=== PATIENT | female | born 1945 | race Caucasian/White ===

== ENCOUNTER 2016-12-13 13:06 | Observation (INO) ==
[2016-12-13] MEDS ORDERED: 0.9 % Sodium Chloride 1,000 ML ONE ×2 (13:53→14:55)
[2016-12-13] MEDS ORDERED: *HR* Heparin 10,000 UNIT/10 ML VIAL ONE (13:53)
[2016-12-13] MEDS ORDERED: Heparin 1,000 UNITS/500 mL NS 500 ML ONE (13:53)
--- NOTE | 2016-12-13 14:15 | Emergency Department Note ---
Disposition Clinical Impression: Peripheral vascular disease Disposition: Transfer Other Reasons to Return/Additional Instructions: To the [facility] as an outpatient Referrals: Corky Diamond MD [Primary Care Provider] - Forms: ED Satisfaction Letter Time of Disposition: 14:15 Extremity Problem HPI - General Chief complaint: ED Extremity Problem,Nontraumatic Stated complaint: toe infection Source: patient, family Limitations: no limitations Nursing Notes Reviewed: Yes Vital Signs Reviewed: Yes - History of Present Illness HPI Narrative: 71-year-old with right foot pain seen by vascular and sent here to be prepped for a trip to the [facility] and stenting. She states she has increasing right foot pain without a necrotic area on her big toe and second toe. Pt Subjective Complaint: extremity pain Onset (ago): day(s) Consistency: constant Pain Scale: 8 Radiation: none Improves with: nothing Worsens with: nothing Associated symptoms: Denies: chest pain, shortness of breath - Related Data Previous Rx's Medication Instructions Recorded Ciprofloxacin [Cipro] 500 mg PO BID #14 tablet 11/27/16 HYDROcodone/Acet 5/325 mg [[place] 1 tab PO Q6H PRN #10 tab 11/27/16 5-325 mg] Indomethacin 50 mg PO TID PRN #20 capsule 11/27/16 Sulfamethoxazole/Trimeth DS 1 each PO BID #14 tablet 11/27/16 [Bactrim DS] Allergies Allergy/AdvReac Type Severity Reaction Status Date / Time Penicillins Allergy Itching Verified 11/27/16 18:26 Constitutional: Denies: fever, chills, weakness, weight change Eyes: Denies: eye pain, eye discharge, vision change ENT ED: Denies: ear pain, throat pain, dental pain, hearing loss, epistaxis, congestion, dysphagia Cardiovascular: Denies: chest pain, palpitations, dyspnea on exertion, edema, syncope Respiratory: Denies: cough, dyspnea, wheezes, hemoptysis, stridor Gastrointestinal: Denies: abdominal pain, nausea, vomiting, diarrhea, constipation, hematemesis, melena, hematochezia Genitourinary: Denies: dysuria, frequency, hematuria, discharge Musculoskeletal: Denies: back pain, neck pain, arthralgia, myalgia Integumentary: Denies: rash, abrasion, lesions Neurological: Denies: headache, weakness, numbness, paresthesias, confusion, abnormal gait, vertigo Psychiatric: Denies: anxiety, depression, suicidal thoughts, homicidal thoughts , auditory hallucinations, visual hallucinations Endocrine: Denies: fatigue Hematological/Lymphatic: Denies: easy bleeding, easy bruising Allergic/Immunologic: Denies: facial swelling, urticaria Past Medical History - Past Medical History Medical history: Reports: hypertension Psychiatric history: Reports: no psych history - Social History Smoking Status: Current every day smoker Smokeless Tobacco Status: No Alcohol use: Reports: none Drug use: Reports: none Physical Exam - General Limitations: no limitations General appearance: alert, in no apparent distress - Head Head exam: atraumatic, normocephalic, normal inspection - Eye Eye exam: Present: normal appearance, PERRL, EOMI - Expanded Eye Exam Pupils: Left: reactive - ENT ENT exam: normal exam, normal oropharynx, mucous membranes moist - Expanded ENT Exam External ear exam: Present: normal external inspection Mouth exam: Present: normal external inspection Teeth exam: Present: normal inspection Throat exam: Present: normal inspection - Neck Neck exam: Present: normal inspection, full ROM, trachea midline - Chest Chest inspection: Present: normal inspection, symmetric chest wall rise - Respiratory Respiratory exam: Present: normal lung sounds bilaterally - Cardiovascular Cardiovascular exam: Present: regular rate, normal rhythm, normal heart sounds - Abdominal Exam Abdominal exam: Present: soft, Non-Tender. Absent: tenderness, distention, guarding, rebound, rigidity - Extremities Exam Extremities exam: Present: pedal edema - Expanded Upper Extremity Exam Shoulder exam: Present: normal inspection, full ROM Arm exam: Present: normal inspection, full ROM Elbow exam: Present: normal inspection, full ROM Forearm/Wrist exam: Present: normal inspection, full ROM Hand exam: Present: normal inspection, full ROM Vascular exam: Normal: capillary refill, radial pulse - Expanded Lower Extremity Exam Hip/Pelvis exam: Present: normal inspection, full ROM Upper leg exam: Present: normal inspection, full ROM Knee exam: Present: normal inspection, full ROM Lower leg exam: Present: normal inspection, full ROM Ankle exam: Present: normal inspection, full ROM Foot/toe exam: Present: other (Chronic area of the great toe and second toe.) Neurovascular/Tendon exam: Absent: motor deficit, sensory deficit, tendon deficit - Back Exam Back exam: Present: normal inspection, full ROM. Absent: tenderness - Neurological Exam Neurological exam: Present: alert, oriented X3 - Expanded Neurological Exam Patient oriented to: Present: person, place, time Coma Scale Eye Opening: Spontaneous Coma Scale Motor Response: Obeys Commands Coma Scale Verbal Response: Oriented Coma Scale Total: 15 - Psychiatric Psychiatric exam: Present: normal affect, normal mood - Skin Skin exam: Present: warm, dry, intact, normal color Course - Reevaluation(s) Reevaluation #1: Genitourinary for clearance to go to the catheter lab. Dr. Walker gave orders for labs and will be down to take the patient to the [facility] when labs return. Time: 14:14 Vital Signs Temperature 97.7 F 12/13/16 13:14 Pulse Rate 109 12/13/16 13:14 Respiratory Rate 18 12/13/16 13:14 Blood Pressure 169/86 12/13/16 13:14 O2 Sat by Pulse Oximetry 97 12/13/16 13:14 Temperature 97.7 F 12/13/16 13:14 Pulse Rate 109 12/13/16 13:14 Respiratory Rate 18 12/13/16 13:14 Blood Pressure 169/86 12/13/16 13:14 O2 Sat by Pulse Oximetry 97 12/13/16 13:14 Oxygen Delivery Oxygen Delivery Room Air Extremity Problem, Nontraumati - EKG Data EKG attestation: Yes I reviewed and interpreted this EKG. EKG shows normal: sinus rhythm Rate: normal Rhythm: NSR Interpretation: no acute changes
[2016-12-13 14:30] LABS: Basophils # 0.1 K/mcL (0.0-0.2); Basophils % 0.7 %; Eosinophils % 0.2 %; Hematocrit 34.3 % (35.3-44.9); Hemoglobin 10.7 g/dL (11.5-15.4); Immature Granulocytes % 4.3 % (0-4); Lymphocytes # 0.7 K/mcL (0.6-4.6); Lymphocytes % 5.5 %; Mean Corpuscular HGB Conc 31.2 g/dL (31.6-35.5); Mean Corpuscular Hemoglobin 28.2 pg (28.0-33.3); Mean Corpuscular Volume 90.5 fL (83.0-100.0); Mean Platelet Volume 8.7 fL (9.4-12.4); Monocytes # 0.6 K/mcL (0.0-1.3); Monocytes % 5.1 %; Neutrophils # 10.2 K/mcL (1.6-8.9); Platelet Count 426 K/mcL (140-400); Red Blood Count 3.79 M/mcL (3.82-4.97); Red Cell Distribution Width 15.9 % (11.5-14.5); Segmented Neutrophils % 84.2 %
[2016-12-13 14:41] LABS: INR 1.1
[2016-12-13 14:42] LABS: BUN/Creatinine Ratio 17 (6-26); Blood Urea Nitrogen 17 mg/dL (7-20); Calcium 9.2 mg/dL (8.6-10.8); Carbon Dioxide 22 mEq/L (19-29); Chloride 103 mEq/L (98-109); Glucose 99 mg/dL (70-99); Osmolality,Calculated 280 (280-300); Sodium 134 mEq/L (136-145); eGFR For African Americans > 60 (> 60); eGFR For Non-African Americans 54 (> 60)
[2016-12-13 14:44] LABS: Activated Partial Thrombo Time 29.8 Seconds (26.0-36.0)
[2016-12-13] MEDS ORDERED: *HR* FentaNYL (PF) 100 MCG/2 ML VIAL ONE ×2 (14:55→16:19)
[2016-12-13] MEDS ORDERED: *HR* Midazolam HCl 2 MG/2 ML VIAL ONE (14:55)
--- NOTE | 2016-12-13 14:59 | History & Physical Report ---
Date of Encounter: 12/13/16 Time of Encounter: 14:59 24 Hour HP Update - Instructions Instructions: If the History and Physical is less than 30 days old and was completed prior to A.M. admission and or procedure and has NOT been updated on calendar day of procedure please complete this update prior to performing procedure. - Update Patient reports changes in Medical Condition: No Changes in assessment/condition: No Changes in Medication: No Preop tests/diagnostics Reviewed: Yes Surgery Remains Indicated: Yes Consent for Planned Operative Procedure(s) Verified: Yes - Pre-Operative Checklist Preoperative Checklist Indicated: No Prophylactic Antibiotic Ordered: No Home Medications Include Beta Elif: No Beta Elif Taken Today (Day of Surgery): No Beta Elif Taken Yesterday (Day Prior to Surgery): No Is VTE Prophylaxis Indicated?: NO
--- NOTE | 2016-12-13 15:01 | Pre-Sedation Evaluation ---
Pre-sedation evaluation - Pre-sedation checklist Date of procedure: 12/13/16 Procedure: lower extremity angiogram Recent Vitals: Last Vital Signs Temp 97.7 F 12/13/16 13:14 Pulse 109 12/13/16 14:42 Resp 18 12/13/16 14:45 BP 169/86 12/13/16 14:45 Pulse Ox 97 12/13/16 14:42 H&P (including ROS) documented in medical record: Yes Previous reaction to sedatives/anesthetics: No Dietary Status: No solid food in preceding 4 hrs and no liquid in preceding 2 hrs Possible difficult airway: No ASA Classification *see protocol: CLASS III-Severe systemic disease Plan of Care: Pt appropriate candidate for procedure/moderate/conscious sedation , Risks/benefits of procedure/sedation discussed w/ patient/family
--- NOTE | 2016-12-13 17:15 | Procedure Note ---
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
[2016-12-13] MEDS ORDERED: Acetaminophen 325 MG TABLET PO PRN (17:20)
[2016-12-13] MEDS ORDERED: Ondansetron 4 MG/2 ML VIAL IVP PRN (17:20)
--- NOTE | 2016-12-13 17:20 | Discharge Summary ---
Outpatient Proc Discharge Plan - Plan Additional Instructions: femoral sheath protocol resume usual home medications begin Plavix 75 mg daily follow up with Dr Diamond in 2 weeks--call [phone] for appointment Prescriptions: Clopidogrel Bisulfate [Plavix] 75 mg PO DAILY #30 tablet Home Medications: Ciprofloxacin [Cipro] 500 mg PO BID #14 tablet 11/27/16 [Rx] HYDROcodone/Acet 5/325 mg [[place] 5-325 mg] 1 tab PO Q6H PRN #10 tab 11/27/16 [Rx ] Indomethacin 50 mg PO TID PRN #20 capsule 11/27/16 [Rx] Sulfamethoxazole/Trimeth DS [Bactrim Ds] 1 each PO BID #14 tablet 11/27/16 [Rx] Clopidogrel Bisulfate [Plavix] 75 mg PO DAILY #30 tablet 12/13/16 [Rx]
[2016-12-13] MEDS ORDERED: *HR* Metoprolol 5 MG/5 ML VIAL IVP ONE (18:07)
[2016-12-13] MEDS: *HR* Morphine 2 MG/ML SYRINGE IVP PRN (19:54)
[2016-12-13] MEDS ORDERED: *HR* Atropine Sulfate 1 MG/10 ML SYRINGE ONE (21:04)
[2016-12-14] MEDS: *HR* HYDROcodone/Acet 5/325 mg TABLET PO PRN ×3 (01:06→08:40)
[2016-12-14] MEDS ORDERED: *HR* Metoprolol 5 MG/5 ML VIAL IVP ONE (02:19)
[2016-12-14] MEDS: *HR* Morphine 2 MG/ML SYRINGE IVP PRN (02:31)
[2016-12-14 07:45] VITALS: BP 149/63
--- NOTE | 2016-12-14 08:14 | Event Note ---
Date of Encounter: 12/14/16 Time of Encounter: 07:50 The patient underwent aortic and iliac stent placement yesterday. She was to be discharged last evening. She was having uncontrollable pain in her right foot at 2 AM. Pulses were intact. This is likely secondary to chronic ischemic injury. At the same time she was having pain in her foot she also had tachyarrhythmia with one run of atrial flutter and one short run of paroxysmal supraventricular tachyarrhythmia. This was treated with an additional dose of intravenous metoprolol. She had no further supraventricular tachycardia and this morning she is in regular rate and rhythm. She continues to have right forefoot pain. Peripheral pulses are intact. She will require additional pain medicine for discharge.
--- NOTE | 2016-12-14 16:30 | Vascular/Endovasc Consult Note ---
Date of Encounter: 12/13/16 Time of Encounter: 15:30 Assessment and Plan (1) Hyperlipidemia Status: Chronic Patient is under treatment with Lipitor 10 mg daily. The outpatient follow-up for this and values of her lipid profile as well as her liver functions are unknown at this time. Qualifiers: Hyperlipidemia type: unspecified Qualified Code(s): E78.5 - Hyperlipidemia , unspecified (2) CAD (coronary artery disease) Status: Ruled-out History of previous myocardial infarction. History of previous open heart bypass grafting in 1998. Details of these events are unknown at the time of this dictation. Qualifiers: Coronary Disease-Associated Artery/Lesion type: [place] artery [place] vs. transplanted heart: [place] heart Associated angina: without angina Qualified Code(s): I25.10 - Atherosclerotic heart disease of [place] coronary artery without angina pectoris (3) Peripheral vascular disease Status: Chronic Severe lower extremity occlusive disease. The patient presents with inflow obstruction or severe stenosis. 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 As I cannot palpate her femoral pulses I believe that she has either a stenosis or occlusion of the right common iliac artery system which is the inflow for both lower extremities. Therefore the patient needs urgent angiography and intervention in an attempt to relieve her lower extremity symptoms and limb threatening ischemia. - History of Present Illness Consult date: 12/13/16 Requesting physician: Bret Hubbard Consult reason: Right foot ischemia Chief complaint: Right foot pain History of present illness: Ms. Fajardo is a 71 year old female White female who had been evaluated recently in the podiatry clinic for right foot and toe problems. The patient was felt to have ischemic changes and was referred for outpatient noninvasive testing. This was performed earlier today at [facility]. At the time of her testing her ankle-brachial index was found to be only 0.25 on the right and 0.38 on the left. The patient also has a many week to months history of lower extremity pain. She had undergone previous vascular interventions. In April 2013 she had undergone an emergency angiogram where a right common iliac artery stent was placed. She was then taken for urgent surgery and underwent a right to left femoral-femoral bypass graft and a left femoral to below the knee popliteal artery vein bypass graft. Unfortunately her last follow-up in the vascular surgery clinic was in May 2014. At that time a noninvasive study from April 2014 was recorded with an ankle -brachial index of 0.7 on the right and 0.8 on the left. An increased velocity in the graft was identified and the patient was recommended to follow up in 6 months with further testing which was never performed. After conversation with Dr. hubbard and the staff technologist earlier today I had recommended that the patient be seen for an urgent angiogram again in an attempt to try to alleviate her limb threatening ischemia. She was then therefore sent from [facility] to the emergency room here at [facility] and now comes to the cardiac catheter lab for angiography and further evaluation and potential endovascular intervention area Past Med Surg Social Fam HX - Past Medical History Medical history: coronary artery disease, hyperlipidemia, hypertension, myocardial infarction, peripheral artery disease Psychiatric history: no psych history - Past Surgical History Surgical History: angioplasty/stent (April 2013 with right common iliac artery stent angioplasty.), coronary bypass (CABG), vascular surgery (April 2013 with right to left femoral-femoral bypass graft and left femoral to below the knee popliteal artery bypass graft with vein) - Social History Smoking Status: Current every day smoker Smokeless Tobacco Status: No Alcohol use: none Drug use: none Occupational status: retired Current living situation: Home - Independent Activity Level: Mostly sedentary Medications and Allergies HYDROcodone/Acet 5/325 mg [[place] 5-325 mg] 1 tab PO Q6H PRN #10 tab 11/27/16 [Rx ] Indomethacin 50 mg PO TID PRN #20 capsule 11/27/16 [Rx] Aspirin [Lo-Dose Aspirin EC] 81 mg PO DAILY 12/14/16 [History] Atorvastatin [Lipitor] 10 mg PO DAILY 12/14/16 [History] Clopidogrel [Plavix] 75 mg PO DAILY 12/14/16 [History] Gabapentin [Neurontin] 300 mg PO TID 12/14/16 [History] Tramadol HCl [Ultram] 50 mg PO QID PRN 12/14/16 [History] Zolpidem [Ambien] 10 mg PO HS PRN 12/14/16 [History] Allergies Penicillins Allergy (Verified 12/14/16 09:52) Rash All Systems Review: A 10-system review of systems was performed and is negative for pertinent findings except as documented above in the HPI. Exam General: Present: Conversant, Other (Patient is in distress with manipulation of right foot or toes.) HEENT: Present: Atraumatic, Normocephaly, Trachea midline Neck: Absent: JVD Cardiac: Present: Other (Sinus tachycardia) Neuro: Present: Alert and responsive, No focal deficits noted, Cranial nerves grossly intact, Motor nerves grossly intact, Sensory nerves grossly intact, Other (Hypersensitivity to the right foot and toes) Abdomen: Present: Soft, Non-tender Vascular: Present: Pulse, absent (The patient does not have palpable femoral, popliteal, or pedal pulses.), Color/Temperature (The skin color of her feet and lower extremities is pale. She has cyanotic changes to her first and second toe on the right foot.), Surgical incisions (The patient has bilateral femoral incisions and left lower extremity incisions from her previous bypass grafting performed in 2013.) Skin: Present: No rashes noted on visualized skin Consult Discharge Plan - Plan Instructions: Clopidogrel (By mouth), Peripheral Vascular Disorders (DC) Additional Instructions: femoral sheath protocol resume usual home medications begin Plavix 75 mg daily follow up with Dr Diamond in 2 weeks--call [phone] for appointment RISK FACTORS: STOP SMOKING: If you smoke, STOP. Smoking or tobacco use significantly increases your risk of heart disease because nicotine causes the arteries to narrow or constrict. It also causes fats to stick to the artery. Your chances of having a heart attack are greatly increased if you continue to smoke. For more information, call the education line for smoking cessation 2-244-AXLLMBI EAT A LOW FAT/CHOLESTEROL/SODIUM DIET: This diet may help reduce your chances of having a heart attack. LIFTING: Avoid lifting anything more than 10 pounds for 5-7 days Prior to straining, laughing, sneezing and/or coughing, apply manual pressure directly over insertion site. ACTIVITY: You may walk or climb stairs as tolerated You can resume sexual activity as tolerated In general, you are encouraged to engage in a minimum of 30 minutes or more of moderate intensity physical activity, such as brisk walking, daily or at least 3 -4 times weekly BATHING Do not submerge the site into water (bath tub, hot tub, swimming pool) for 1 week. This can be a source for infection into the blood stream. You may shower after 24 hours SITE CARE: After 24 hours, you may remove the dressing and leave the site open to air. Keep the site clean and dry. Clean gently and pat dry. You can expect bruising and tenderness that gradually resolve within a week or two. Return to work as instructed per your physician Resume driving as instructed per physician Keep all scheduled follow up appointments Resume medications as instructed IMPORTANT: If prescribed a Platelet Aggregation Inhibitor such as, Plavix, Brilinta or Effient: Duration of therapy is minimum one year These medications are often used in combination with Aspirin in prevention of future heart attacks Never discontinue unless consult with your Store [employer] [facility]er STROKE (CVA) Risk factors for a stroke are: Age, cigarette smoking, diabetes, excessive alcohol consumption, family history, high blood pressure, overweight, physical inactivity, prior stroke, heart attack, diagnosis of carotid artery stenosis or other artery disease. Warning signs: Sudden numbness or weakness of the face, arm or leg; especially on one side of the body, sudden confusion, trouble speaking or understanding, sudden trouble seeing in one or both eyes, sudden trouble walking, dizziness, loss of balance or coordination, sudden severe headache with no cause. Call 911 or go to the Emergency Room. CONGESTIVE HEART FAILURE: If you have been diagnosed with Congestive Heart Failure (CHF) and your symptoms return, make an appointment with your physician Weigh yourself daily. Notify your physician if you have a weight gain of two or more pounds in one day or five or more pounds in one week. If you experience any difficulty breathing, please call 911 BLEEDING: Although the risk of bleeding is minimal, it can happen. If you have any bleeding from the site, apply firm pressure above the puncture site for 10-15 minutes. If the bleeding does not stop, continue manual pressure and call 911 Contact your physician if: You develop a fever greater than 101 degrees Fahrenheit Your site becomes reddened or has any drainage You have an increase in pain or burning at the site or if a large knot forms at the site. If you experience chest pain, shortness of breath, dizziness, or extreme tiredness, stop the activity and rest. Please notify your physicians office if you experience any of these symptoms and they are not relieved by rest please call 911! Referrals: Cokry Diamond MD [Primary Care Provider] -
--- NOTE | 2016-12-15 20:13 | Electrocardiograph Report ---
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
--- NOTE | 2016-12-16 15:27 | Invasive Diagnostic Lab Proc ---
Name: Perri Fajardo Date of Study: 12/13/2016 Date: 1945 Ht: 157.0 in Medical Record#: [id number] Age: 71 Wt: 59 lb Gender: Female BSA: 1.59 Order #: [id number] BMI: 23.94 Physicians Performing MD: Corky Diamond MD, FACS Referring MD: Cinthia Roldan, GLASSWARE SELECTOR Referring MD: Staff Name Position Time In [facility] Nohelia RT (R) Scrub Jennifer Dao RN Senior Sas Developer Sites, Nohelia RT (R) Monitor CelsaAnju RT (R) Monitor Indications Threatened Limb Loss Procedures Performed AORTOGRAPHY, ABDOMINAL S\\T\\I AORTOGRAPHY EXT Bilat S\\T\\I ILIAC REVASC W/STENT Pre-Procedure Checklist Informed consent is complete signed and on chart. H\\T\\P is on chart. ID band is on and ID verified with patient. Patient NPO for procedure The procedure was described for the patient and questions were answered. Blood Pressure: 180/79 ECG is on chart. Rhythm: NSR Plan of Care Patient will tolerate the procedure without complications. Adequate level of comfort will be maintained. Hemodynamics will remain stable Patient will recover from procedure without complications. Respiratory function will be maintained. Cardiac rhythm will remain stable. Patient temperature will be maintained. Patient and/or family have verbalized understanding of the procedure. Patient Education Chief Complaint/Reason for Test: Peripheral angiogram Developmental Category: Geriatric (65+ years) Learning Barriers: None Education Needs: Procedure Education Method: Verbal Information Taught: Peripheral angiogram Educational Evaluation: Able to repeat information Intravenous Access Time IV Size Location DC'd Fluid/Drip Rate Units RN 14:57 18g 1 11/13" Patent On Arrival Rt Antecubital 0.9NaCl 25 ml/hr Jennifer Dao RN Allergies PCN (penicillin) Penicillins Vital Signs Time BP Systolic BP Diastolic HR O2 Sats ASA 03:01 PM 03:02 PM 03:02 PM 03:00 PM 180 79 110 100 03:05 PM 170 78 117 95 03:10 PM 174 73 103 97 03:15 PM 173 61 101 97 03:21 PM 168 79 105 99 03:25 PM 167 71 101 100 03:30 PM 171 66 97 100 03:35 PM 162 73 98 100 03:40 PM 174 61 96 100 03:45 PM 159 68 98 100 03:50 PM 165 65 96 98 03:55 PM 163 63 96 100 04:00 PM 161 69 94 98 04:55 PM 171 74 106 93 05:00 PM 160 69 102 97 05:05 PM 156 70 103 93 05:10 PM 169 71 107 89 04:05 PM 165 72 98 100 04:10 PM 164 67 99 99 04:15 PM 157 76 105 90 04:20 PM 166 67 103 98 04:26 PM 166 61 100 95 04:30 PM 153 64 98 92 04:35 PM 155 67 105 100 04:40 PM 169 76 104 94 04:46 PM 174 78 104 100 04:50 PM 188 74 104 99 Procedure Medications Time Medication Dose Units Method Route 03:01 PM Oxygen 2 L/min nasal cannula 03:03 PM Versed 1 mg Intravenous 03:03 PM Fentanyl 25 mcg Intravenous 03:17 PM Lidocaine 2% 10 ml Subcutaneous 03:19 PM Fentanyl 25 mcg Intravenous 03:22 PM Versed 1 mg Intravenous 03:23 PM Lidocaine 2% 10 ml Subcutaneous 03:38 PM Lidocaine 2% 10 ml Subcutaneous 03:38 PM Fentanyl 25 mcg Intravenous 03:51 PM Lidocaine 2% 10 ml Subcutaneous 04:09 PM Heparin 500 units Intravenous 04:14 PM Fentanyl 25 mcg Intravenous 04:19 PM Fentanyl 50 mcg Intravenous 04:33 PM Benadryl 25 mg Intravenous 05:12 PM Fentanyl 50 mcg Intravenous ASA Classification: CLASS II- Mild systemic disease (i.e. well-controlled diabetes, hypertension, asthma, cigarette smoking) Emergent Procedure: ASA score is assumed Simi Score Preprocedure Postprocedure Activity 2- Moves 4 extremities sustained head lift Activity 2- Moves 4 extremities sustained head lift Circulation 1- SBP+/= 20 - 50 points of pre-anesthetic level Circulation 1- SBP+/= 20 - 50 points of pre-anesthetic level Consciousness 2- Awake and alert oriented x 3 Consciousness 2- Awake and alert oriented x 3 O2 Saturation 2- Able to maintain O2 satruation of 92% on room air O2 Saturation 2- Able to maintain O2 satruation of 92% on room air Respiratory 2- Able to deep breathe and cough well Respiratory 2- Able to deep breathe and cough well Total Score 9 Total Score 9 Contrast: Isovue 300- 150ml Contrast Amount: 65 ml Fluoro Dose: 379 mGy Activated Clotting Time Time Drawn ACT (sec) 05:12 PM 208 Procedure Log Time Note Entered By 03:01 PM Pt arrived to crime lab technician 1 at 15:01 scoates 03:01 PM Case delayed: No scoates 03:01 PM Physician arrived 15:01 scoates 03:01 PM Meet and greet completed scoates 03:01 PM Sign in performed according to hospital policy. scoates 03:01 PM Procedure start 15:01 scoates 03:01 PM 15:01 Oxygen at 2 L/min per nasal cannula by Jennifer Dao RN scoates 03:01 PM Time: 15:01 Is patient comfortable and pain free?: Yes scoates 03:02 PM Time: 15:02LOC: 5 = Fully awake and oriented or at pre-proc level scoates 03:02 PM Patient charges- Angio tray pack, Pulse Oximetry and ACIST tubing and transducer scoates 03:03 PM 15:03 Versed 1 mg Intravenous Given by Jennifer Dao RN scoates 03:03 PM 15:03 Fentanyl 25 mcg Intravenous Given by Jennifer Dao RN scoates 03:03 PM Nohelia Fajardo RT (R) Position: Scrub Time in: 15:03 scoates 03:03 PM Jennifer Dao RN Position: Senior Sas Developer Time in: 15:03 scoates 03:03 PM Nohelia Whitman RT (R) Position: Monitor Time in: 15:03 scoates 03:03 PM Anju Steen RT (R) Position: Monitor Time in: 15:03 scoates 03:07 PM Time out perfomed scoates 03:03 PM Hair removed from procedure site in procedure lab using clippers. Bilateral groin prepped with Chloraprep by Sabrina López RT (R) then patient draped. Skin intact. scoates 03:09 PM Ultrasound, Sonosite, utilized to obtain vascular access scoates 03:16 PM Smart Needle utilized for vascular access at this time scoates 03:17 PM Time: 15:02LOC: 4 = Oriented but drowsy scoates 03:17 PM Time: 15:01 Is patient comfortable and pain free?: Yes scoates 03:18 PM 15:17 10 ml Lidocaine 2% to right groin Subcutaneous Given By Corky Diamond MD, FACS scoates 03:19 PM 15:19 Fentanyl 25 mcg Intravenous Given by Jennifer Dao RN tsites 03:23 PM 15:22 Versed 1 mg Intravenous Given by Jennifer Dao RN tsites 03:23 PM 15:23 10 ml Lidocaine 2% to right groin Subcutaneous Given By Corky Diamond MD, FACS tsites 03:11 PM Unsuccessful access attempt # 1 into the right Femoral artery. Manual pressure applied to achieve hemostasis.. tsites 03:20 PM Unsuccessful access attempt # 2 into the right Femoral artery. Manual pressure applied to achieve hemostasis.. tsites 03:27 PM Unsuccessful access attempt # 3 into the right Femoral artery. Manual pressure applied to achieve hemostasis.. tsites 03:30 PM Unsuccessful access attempt # 4 into the right Femoral artery. Manual pressure applied to achieve hemostasis.. tsites 03:36 PM Unsuccessful access attempt # 5 into the right Femoral artery. Manual pressure applied to achieve hemostasis.. tsites 03:38 PM 15:38 10 ml Lidocaine 2% to right groin Subcutaneous Given By Corky Diamond MD, FACS tsites 03:38 PM 15:38 Fentanyl 25 mcg Intravenous Given by Jennifer Dao RN tsites 03:43 PM Unsuccessful access attempt # 6 into the right Femoral artery. Manual pressure applied to achieve hemostasis.. tsites 03:51 PM 15:51 10 ml Lidocaine 2% to right groin Subcutaneous Given By Corky Diamond MD, FACS tsites 03:56 PM Access obtained in the right femoral artery by percutaneous puncture. 5 Fr. 10 cm Terumo Wake[place] sheath placed in right femoral artery tsites 03:58 PM 5cc of contrast injected into the right femoral artery tsites 03:59 PM 0.035 180cm J-wire wire utilized to assist with catheter placement tsites 04:01 PM 5Fr [place] catheter inserted over the wire tsites 04:02 PM Wire removed tsites 04:02 PM 5cc of contrast injected tsites 04:05 PM Abdominal aorta angiography performed in AP contrast injected 10/25 mls. tsites 04:08 PM glidewire reinserted tsites 04:08 PM Catheter removed tsites 04:09 PM 16:09 Heparin 500 units Intravenous by Jennifer Dao RN tsites 04:10 PM Intervention started at this time tsites 04:10 PM Inflation device tsites 04:10 PM 5 mm x 40 mm Silicator balloon catheter placed into right common iliac tsites 04:12 PM Balloon inflated @ 16 landen for 120 seconds tsites 04:14 PM 16:14 Fentanyl 25 mcg Intravenous Given by Jennifer Dao RN tsites 04:15 PM Balloon inflated @ 16 landen for 120 seconds tsites 04:17 PM Diagram Region: Abdominal Arteries Anatomical Region: [id number]% occlusion in Distal Aorta Intervention done: 1 (1=yes, 0=no) tsites 04:17 PM Diagram Region: Lower Extremity Arteries Anatomical Region: LE-Njh046% occlusion in Left Common Iliac Intervention done: 0 (1=yes, 0=no) tsites 04:18 PM Diagram Region: Lower Extremity Arteries Anatomical Region: [id number]-Big943% occlusion in Right Common Iliac Intervention done: 1 (1=yes, 0=no) tsites 04:18 PM Balloon inflated @ 16 landen for 60 seconds tsites 04:19 PM 16:19 Fentanyl 50 mcg Intravenous Given by Jennifer Dao RN tsites 04:21 PM balloon removed over the wire tsites 04:22 PM contrast injected, images obtained tsites 04:22 PM CHRISTEL catheter inserted over the wire. tsites 04:24 PM wire exchanged tsites 04:24 PM catheter removed tsites 04:30 PM 5.0 mm x 60 mm Silicator balloon catheter placed into right common iliac tsites 04:31 PM Balloon inflated @ 14 landen for 120 seconds tsites 04:33 PM 16:33 Benadryl 25 mg Intravenous Given by Jennifer Dao RN tsites 04:33 PM Balloon removed intact tsites 04:34 PM contrast injected, images obtained tsites 04:39 PM Sheath exchanged for a 6 Fr 10 cm [place] sheath inserted into right femoral artery tsites 04:40 PM 6 mm x 37 mm Express LD stent placed in right common iliac artery Lot # [id number] tsites 04:43 PM Guide wire removed intact tsites 04:44 PM 0.035 J -Wire 180cm guidewire advanced. tsites 04:45 PM Stent deployed @ 12 landen for 60 seconds tsites 04:47 PM Stent balloon reinflated @ 14 landne for 60 seconds tsites 04:49 PM Stent balloon reinflated @ 14 landen for 60 seconds tsites 04:51 PM contrast injected, images obtained tsites 04:54 PM 7 mm x 27 mm Express LD stent placed in distal aorta artery Lot # [id number] tsites 04:55 PM Stent deployed @ 12 landen for 60 seconds tsites 04:56 PM Stent delivery system removed intact tsites 04:59 PM Pigtail catheter inserted over the wire tsites 05:02 PM Abdominal angiogram with runoff completed: 5 ml/sec for a total of 50 mls tsites 05:01 PM Setting up for stepping tsites 05:12 PM act drawn tsites 05:12 PM 17:12 Fentanyl 50 mcg Intravenous Given by Jennifer Dao RN tsites 05:12 PM ACT drawn tsites 05:12 PM ACT: 208 seconds 17:12 tsites 02:59 PM PVIStat 02:59 PM Vitals capture started with the following parameters, Patient=Adult, Interval=5 min, Initial Nsyfycyx=007 mmHg, Deflation Rate=5 mmHg 03:00 PM VU=944 bpm, RPFJ=267/79 mmhg, DgN7=752.0 % 03:05 PM PB=332 bpm, PEPP=146/78 mmhg, SpO2=95 %, Resp=4 B/min 03:09 PM Pressure channel 1 zero failed. 03:09 PM Pressure channel 1 zero failed. 03:09 PM Pressure channel 1 zeroed. 03:10 PM JY=395 bpm, FXYE=445/73 mmhg, SpO2=97.0 %, Resp=18 B/min 03:15 PM UI=454 bpm, BPNN=882/61 mmhg, SpO2=97 %, Resp=21 B/min 03:21 PM MN=679 bpm, TBSU=154/79 mmhg, SpO2=99 %, Resp=12 B/min 03:25 PM EL=899 bpm, ETIQ=695/71 mmhg, MeM6=575 %, Resp=25 B/min 03:30 PM HR=97 bpm, LVDO=009/66 mmhg, UjB2=367.0 %, Resp=20 B/min 04:30 PM HR=98 bpm, JKTZ=478/64 mmhg, SpO2=92 %, Resp=15 B/min 04:35 PM ZV=841 bpm, RZYB=290/67 mmhg, GtX5=557.0 %, Resp=9 B/min 04:40 PM IK=147 bpm, EYRA=146/76 mmhg, SpO2=94.0 %, Resp=10 B/min 04:46 PM TU=176 bpm, NLLJ=373/78 mmhg, CxJ9=210.0 %, Resp=23 B/min 04:50 PM JH=723 bpm, WDDG=379/74 mmhg, SpO2=99.0 %, Resp=12 B/min 04:55 PM BL=961 bpm, SPEP=260/74 mmhg, SpO2=93.0 %, Resp=13 B/min 05:00 PM RJ=743 bpm, YBWF=432/69 mmhg, SpO2=97.0 %, Resp=17 B/min 05:00 PM Recorded Pressure: Ao, SG=168, Condition=Condition 1 (Aorta) Ao 196/74/127 05:05 PM SV=610 bpm, VUCV=288/70 mmhg, SpO2=93.0 %, Resp=19 B/min 05:10 PM JU=041 bpm, AKTX=049/71 mmhg, SpO2=89 %, Resp=7 B/min 03:35 PM HR=98 bpm, JJUX=995/73 mmhg, OlC6=580 %, Resp=17 B/min 03:40 PM HR=96 bpm, DUQQ=985/61 mmhg, CbW3=201 %, Resp=20 B/min 03:45 PM HR=98 bpm, TFRW=747/68 mmhg, MmJ9=539.0 %, Resp=26 B/min 03:50 PM HR=96 bpm, GAAF=303/65 mmhg, SpO2=98 %, Resp=16 B/min 03:55 PM HR=96 bpm, HWYF=124/63 mmhg, PzO3=130 %, Resp=22 B/min 04:00 PM HR=94 bpm, SRKA=949/69 mmhg, SpO2=98 %, Resp=20 B/min 04:05 PM HR=98 bpm, OHME=522/72 mmhg, BiZ6=950 %, Resp=25 B/min 04:10 PM HR=99 bpm, JUTD=491/67 mmhg, SpO2=99 %, Resp=19 B/min 04:15 PM WK=583 bpm, PMQP=393/76 mmhg, SpO2=90 %, Resp=11 B/min 04:20 PM JH=192 bpm, FMSQ=504/67 mmhg, SpO2=98 %, Resp=6 B/min 04:26 PM OP=228 bpm, YHQZ=005/61 mmhg, SpO2=95 %, Resp=17 B/min 05:14 PM Procedure completed at 17:14 tsites 05:15 PM Sign Out completed: Radiation Dose 379 mGy Fluoro Time: 7.4 minutes. Isovue 300- 150ml contrast 65 ml given by Corky Diamond MD, FACS. Complications: None. Confirmed administered medications:Yes tsites 05:16 PM Isovue 300- 150ml,1 bottle(s) used. tsites 05:16 PM Sheath left in place to be pulled on floor/holding areaV+Pad tsites 05:16 PM Post Blood Pressure: 169/71 tsites 05:16 PM Post EKG: NSR tsites 05:16 PM 17:16 Post Pulses: Bilateral DP \\T\\ PT None. tsites 05:16 PM Information taught: Peripheral angiogram tsites 05:17 PM Education needs: Procedure, Plan of Care, and Responsibilities of Patient in Care tsites 05:17 PM Learning barriers: None tsites 05:17 PM Education methods: Verbal tsites 05:17 PM Education evaluation: Able to repeat information tsites 05:17 PM Patient pain level 0/10 tsites 05:17 PM Site status No bleeding/hematoma - Rt Groin as reported by Nohelia Fajardo RT (R) at 17:17 tsites 05:17 PM Opsite applied tsites 05:17 PM Delay to floor: No tsites 05:17 PM Pt taken to Room# 14 tsites 05:17 PM Family placed in consult room. tsites 05:17 PM Patient out of room 17:17 tsites 05:19 PM Diagram Region: Lower Extremity Arteries Anatomical Region: LE-Sse107% occlusion in Left Superficial Femoral Intervention done: 0 (1=yes, 0=no) tsites 05:23 PM Diagram Region: Lower Extremity Arteries Anatomical Region: [id number]% occlusion in Right Superficial Femoral Intervention done: 0 (1=yes, 0=no) tsites 05:23 PM Diagram Region: Lower Extremity Arteries Anatomical Region: LE-Lsj090% occlusion in Left Ant. Tibial Intervention done: 0 (1=yes, 0=no) tsites 05:23 PM Diagram Region: Lower Extremity Arteries Anatomical Region: [id number]-Dsi312% occlusion in Right Ant. Tibial Intervention done: 0 (1=yes, 0=no) tsites 05:24 PM Report given to varghese HEBERT. Pt taken to , Room # 14 17:24 tsites 05:25 PM Delay to floor: No tsites 05:25 PM Pt taken to Room# 14 tsites Hemodynamic Results Site Systolic Diastolic Mean Location Timing Ao 196 74 127 Peripheral Anatomy Vessel Pathology Lesion Stenosis Aneurysm Diameter Thrombus Type Aorta occlusion 100 Left Common Iliac occlusion 100 Right Common Iliac occlusion 100 Left Superficial Femoral occlusion 100 Right Superficial Femoral Lesion 60 Left Ant. Tibial occlusion 100 Right Ant. Tibial occlusion 100 Peripheral Intervention Anatomical Region:Abd-Art Vessel Segment:Undefined Bookmark: [email or web address] Pathology Type:occlusion Pre-Stenosis:100 Post-Stenosis:15 Peripheral Intervention Anatomical Region:LE-Art Vessel Segment:Undefined Bookmark: [email or web address]_Intv Pathology Type:occlusion Pre-Stenosis:100 Post-Stenosis:0 Post Procedure Information Blood Pressure: 169/71 mmHg Rhythm: NSR Post procedure instructions given Report Given To: Jacqueline Site Checks Time Location Status Staff Sheath In? Note 5:17:00 PM Rt Groin No bleeding/ No Hematoma Nohelia Fajardo RT (R) Pulses Time Site Pre Procedure Post Procedure Note 12/13/2016 3:04:00 PM Bilateral DP \\T\\ PT None 5:16:00 PM Bilateral DP \\T\\ PT None Updated by Bria Cronin RT (R) on 12/16/2016 3:21:47 PM electronically signed on 12/16/2016 3:22:42 PM with status of Final
--- NOTE | 2016-12-20 19:56 | Invasive Diagnostic Lab ---
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 An intervention including stent placement was performed successfully on the distal Abdominal aorta. The bilateral renals have non-significant disease. 100% in-stent restenosis in the Right Common Iliac. An intervention including balloon angioplasty and stent placement was performed successfully on the Right Common Iliac stent and in the more distal Right Common Iliac artery. 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 The [id number] femoral-femoral bypass is patent. The left Superficial Femoral is chronically occluded. The Left femoral-below knee bypass graft is patent. The right Superficial Femoral has significant, flow limiting disease. The Bilateral Tibials demonstrate minimal concentration of contrast and may be sevely diseased or occluded. Recommendations: Optimize medical therapy of patient's diseases. 75 mg Plavix PO daily. Aggressive risk factor modification. History/ Risk Factors: Hypertension Hx of Tobacco Use Peripheral Artery Disease Previous CABG Previous PCI Previous Vascular Surgery Technique: The puncture of the right groin was difficult and required Doppler-tipped smart-needle and ultrasound guidance in order to identify the femoral vessel and advance the wire. After informed consent was obtained the patient was placed on the angiographic table. The access areas were prepped and draped in the usual sterile fashion. A timeout protocol was observed. Access was obtained in the right femoral artery. The catheter was advanced over a wire to the suprarenal aorta and an abdominal aortogram was obtained. The injection catheter was then repositioned at the distal infrarenal aorta. An aortogram with bilateral lower extremity runoff was then performed. A critical lesion was seen on the angiogram and a decision was made to proceed to an intervention. Diagnostic sheath was exchanged for a 6 Fr. 11 cm. A wire was advanced through the sheath and successfully advanced through the lesions. Heparin was administered. A 5 x 40 mm and a 5 x 60 mm balloon were advanced over a wire and placed in the right common iliac SERVICE STATION MANAGER and the distal aortic SERVICE STATION MANAGER lesion. Several inflations were then made. A completion angiogram was performed which demonstrated unsuccessful results. A 6 x 37 mm stent was advanced into the right common iliac SERVICE STATION MANAGER lesion and deployed. A completion angiogram was performed which demonstrated successful results. A 7 x 27 mm stent was advanced into the distal aortic SERVICE STATION MANAGER lesion and deployed. A completion angiogram was performed which demonstrated successful results. The sheath was removed and hemostasis was achieved with the following measures: Manual Pressure and Closure pad. Vessel Findings: * Abdominal Arteries There is an occlusion present in the Distal Aorta. An intervention was performed on the Aorta, with a final stenosis of 15%. There were no complications in the vessel segment during the procedure. * Lower Extremity Arteries There is an occlusion present in the Right Common Iliac. An intervention was performed on the Right Common Iliac, with a final stenosis of 0%. There were no complications in the vessel segment during the procedure. There is a lesion present with 60% stenosis, in the Right Superficial Femoral. The lesion has moderate calcification present. No intervention was performed on this Lesion. There is a occlusion present in the Right Ant. Tibial. No intervention was performed on this occlusion. There is a occlusion present in the Left Common Iliac. No intervention was performed on this occlusion. There is a occlusion present in the Left Superficial Femoral. No intervention was performed on this occlusion. There is a occlusion present in the Left Ant. Tibial. No intervention was performed on this occlusion. Lesions: Distal Aorta Stenosis: 100% Residual Stenosis: 15% Left Common Iliac Stenosis: 100% Right Common Iliac Stenosis: 100% Residual Stenosis: 0% Left Superficial Femoral Stenosis: 100% Right Superficial Femoral Stenosis: 60% Left Ant. Tibial Stenosis: 100% Right Ant. Tibial Stenosis: 100% Total Contrast: Isovue 300- 150ml 65mls Hemodynamic Data Site Location Systolic Timing Ao 196 Updated by Corky Diamond MD, FACS on 12/20/2016 7:49:54 PM Corky Diamond MD electronically signed on 12/20/2016 7:52:53 PM with status of Final
== END 2016-12-14 09:20 | disposition home or self-care (01) ==
LOC: 2NNU 13:06 → EMEROO 13:06 → 2NNU 14:45 → EMEROO 14:47
PROVIDERS: ADMIT Surgery Vascular Surgery; ATTEND Surgery Vascular Surgery

== ENCOUNTER 2021-10-23 07:16 | Inpatient (IN) ==
[2021-10-23] MEDS ORDERED: Acetaminophen 325 MG TABLET PO PRN (10:20)
[2021-10-23] MEDS ORDERED: Ondansetron ODT 4 MG TAB.RAPDIS SL PRN (10:20)
[2021-10-23] MEDS ORDERED: Naloxone 0.4 MG/ML INJ IVP PRN (10:20)
[2021-10-23] MEDS: *HR* HYDROcodone/Acet 5/325 mg TABLET PO PRN ×2 (11:33→18:20)
[2021-10-23] MEDS ORDERED: *HR* Heparin 5,000 UNIT/ML VIAL IVP PRN ×2 (11:43)
[2021-10-23] MEDS ORDERED: Heparin 25,000UNIT/250ML 1/2NS 25,000 UNIT/250 ML IV.SOLN IVC SCH (11:45)
[2021-10-23] MEDS ORDERED: Heparin 25,000 UNIT/250 ML 25,000 UNIT/250 ML IV.SOLN IVC SCH (12:30)
[2021-10-23 13:04] LABS: Hematocrit 38.3 % (35.3-44.9); Hemoglobin 12.1 g/dL (11.5-15.4); Mean Corpuscular HGB Conc 31.6 g/dL (31.6-35.5); Mean Corpuscular Hemoglobin 28.2 pg (28.0-33.3); Mean Corpuscular Volume 89.3 fL (83.0-100.0); Mean Platelet Volume 10.7 fL (9.4-12.4); Platelet Count 202 K/mcL (140-400); Red Blood Count 4.29 M/mcL (3.82-4.97); Red Cell Distribution Width 13.9 % (11.5-14.5); White Blood Count 15.2 K/mcL (4.3-11.1)
[2021-10-23 13:10] LABS: Heparin anti-factor XA UFH 0.7 IU/mL (0.30-0.70); INR 1.3
[2021-10-23] MEDS: tiZANidine 4 MG TABLET PO PRN (23:51)
[2021-10-24 02:48] LABS: Basophils % 0.4 %; Eosinophils % 0.2 %; Hematocrit 33.8 % (35.3-44.9); Hemoglobin 10.8 g/dL (11.5-15.4); Immature Granulocytes % 0.7 % (0-4); Lymphocytes # 0.8 K/mcL (0.6-4.6); Lymphocytes % 8.2 %; Mean Corpuscular Hemoglobin 29.3 pg (28.0-33.3); Mean Corpuscular Volume 91.8 fL (83.0-100.0); Mean Platelet Volume 10.9 fL (9.4-12.4); Monocytes # 0.9 K/mcL (0.0-1.3); Monocytes % 8.8 %; Neutrophils # 8.4 K/mcL (1.6-8.9); Platelet Count 167 K/mcL (140-400); Red Blood Count 3.68 M/mcL (3.82-4.97); Segmented Neutrophils % 81.7 %; White Blood Count 10.3 K/mcL (4.3-11.1)
[2021-10-24] MEDS: *HR* HYDROcodone/Acet 5/325 mg TABLET PO PRN ×3 (02:58→22:46)
[2021-10-24 03:06] LABS: Calcium 8.6 mg/dL (8.6-10.3); Magnesium 1.9 mg/dL (1.6-2.6); Potassium 3.9 mEq/L (3.5-5.1)
[2021-10-24] MEDS: tiZANidine 4 MG TABLET PO PRN ×2 (07:44→19:41)
[2021-10-24] MEDS ORDERED: Metoprolol XL (24 HR) Succ 50 MG TAB.ER.24H PO SCH (09:00)
[2021-10-24] MEDS ORDERED: Morphine Sulfate 2 MG/ML SYRINGE IVP PRN ×3 (10:16→21:49)
[2021-10-24] MEDS ORDERED: Isovue-370 500 ML BOTTLE IVP ONE ×3 (10:47→21:49)
[2021-10-24] MEDS ORDERED: *HR* FentaNYL (PF) 100 MCG/2 ML VIAL ONE (13:16)
[2021-10-24] MEDS ORDERED: *HR* Propofol 200 MG/20 ML VIAL IVP ONE (13:16)
[2021-10-24] MEDS ORDERED: Heparin 1,000 UNITS/500 mL 500 ML ONE (13:19)
[2021-10-24] MEDS ORDERED: Famotidine 20 MG/2 ML VIAL IVP ONE ×2 (13:25→21:49)
[2021-10-24] MEDS ORDERED: Acetaminophen IV 1,000 MG/100 ML BAG IVPB ONE ×3 (13:25→21:49)
[2021-10-24] MEDS ORDERED: Lidocaine HCL 4 ML Topical Solution (Laryng-O-Jet Kit Sterile Pak) TP ONE (13:29)
[2021-10-24] MEDS ORDERED: Ondansetron 4 MG/2 ML VIAL ONE (13:29)
[2021-10-24] MEDS ORDERED: Lidocaine -MPF 2% 5 ML VIAL ONE (13:29)
[2021-10-24] MEDS ORDERED: *HR* Rocuronium Bromide 50 MG/5 ML VIAL ONE ×2 (13:29→15:47)
[2021-10-24] MEDS ORDERED: Famotidine 20 MG/2 ML VIAL ONE (13:53)
[2021-10-24] MEDS ORDERED: *HR* Remifentanil 1 MG VIAL IVP ONE (15:15)
[2021-10-24] MEDS ORDERED: Heparin 25,000UNIT/250ML 1/2NS 25,000 UNIT/250 ML IV.SOLN ONE (16:44)
[2021-10-24] MEDS ORDERED: *HR* HYDROMORPHONE 2 MG/ML VIAL ONE (17:19)
[2021-10-24] MEDS ORDERED: *HR* Labetalol 20 MG/4 ML SYRINGE IVP ONE (17:44)
[2021-10-24] MEDS ORDERED: Sugammadex Sodium 200 MG/2 ML VIAL IV ONE (17:56)
[2021-10-24] MEDS: Morphine Sulfate 2 MG/ML SYRINGE IVP PRN ×5 (18:33→19:33)
[2021-10-24] MEDS ORDERED: Gabapentin 300 MG CAPSULE PO ONE (19:30)
[2021-10-24] MEDS ORDERED: Ringers Solution, Lactated 1,000 ML ONE (20:37)
[2021-10-24] MEDS ORDERED: Heparin 25,000 UNIT/250 ML 25,000 UNIT/250 ML IV.SOLN IVC SCH (21:49)
[2021-10-24] MEDS ORDERED: *HR* Heparin 5,000 UNIT/ML VIAL IVP PRN ×2 (21:49)
[2021-10-24] MEDS ORDERED: tiZANidine 4 MG TABLET PO PRN (21:49)
[2021-10-24] MEDS ORDERED: Ondansetron 4 MG/2 ML VIAL IVP PRN (21:49)
[2021-10-24] MEDS ORDERED: *HR* Labetalol 20 MG/4 ML SYRINGE IVP PRN (21:49)
[2021-10-24] MEDS ORDERED: Acetaminophen 325 MG TABLET PO PRN (21:49)
[2021-10-24] MEDS ORDERED: Ondansetron ODT 4 MG TAB.RAPDIS SL PRN (21:49)
[2021-10-24] MEDS ORDERED: Naloxone 0.4 MG/ML INJ IVP PRN ×2 (21:49)
[2021-10-24] MEDS: CeFAZolin 2 GM/120 ML BAG IVPB SCH (22:47)
[2021-10-25 00:51] LABS: Calcium 7.9 mg/dL (8.6-10.3); Potassium 4.1 mEq/L (3.5-5.1)
[2021-10-25] MEDS ORDERED: Metoprolol XL (24 HR) Succ 50 MG TAB.ER.24H PO SCH (09:00)
[2021-10-25] MEDS: *HR* HYDROcodone/Acet 5/325 mg TABLET PO PRN ×2 (09:06→22:16)
[2021-10-25] MEDS: CeFAZolin 2 GM/120 ML BAG IVPB SCH ×4 (09:11→23:59)
[2021-10-25] MEDS ORDERED: *HR* FentaNYL (PF) 100 MCG/2 ML VIAL ONE ×3 (10:22→15:14)
[2021-10-25] MEDS ORDERED: *HR* Propofol 200 MG/20 ML VIAL IVP ONE (10:23)
[2021-10-25] MEDS ORDERED: Lidocaine -MPF 2% 5 ML VIAL ONE ×2 (10:25→10:55)
[2021-10-25] MEDS ORDERED: Ondansetron 4 MG/2 ML VIAL ONE (10:25)
[2021-10-25] MEDS ORDERED: Lidocaine HCL 4 ML Topical Solution (Laryng-O-Jet Kit Sterile Pak) TP ONE (10:25)
[2021-10-25] MEDS ORDERED: *HR* Rocuronium Bromide 50 MG/5 ML VIAL ONE (10:25)
[2021-10-25] MEDS ORDERED: Protamine Sulfate 50 MG/5 ML VIAL IVP ONE (10:34)
[2021-10-25] MEDS ORDERED: Heparin 1,000 UNITS/500 mL 500 ML ONE ×2 (10:34→10:48)
[2021-10-25] MEDS ORDERED: *HR* Phenylephrine 10 MG/ML VIAL ONE (10:48)
[2021-10-25] MEDS ORDERED: niCARdipine 0 MG/0 ML MLS IVC ONE (11:00)
[2021-10-25] MEDS ORDERED: Nitroglycerin 0 MG/0 ML INFUS..BTL IVC ONE (11:00)
[2021-10-25] MEDS ORDERED: NiCARdipine 2.5 MG/10 ML Syringe IVPB ONE (11:01)
[2021-10-25] MEDS ORDERED: *HR* Heparin 5,000 UNIT/ML VIAL ONE (12:40)
[2021-10-25 13:25] LABS: ABG Base Excess -5 mEq/L (-2 to 3); ABG Chloride 109 mEq/L (98-107); ABG Glucose 111 mg/dL (60-95); ABG HCO3 20 mEq/L (21-27); ABG Ionized Calcium 1.09 mmol/L (1.15-1.35); ABG Oxygen Saturation 100 % (95-98); ABG PCO2 38 mmHg (35-45); ABG PH 7.34 pH Units (7.32-7.45); ABG PO2 198 mmHg (85-104); ABG TCO2 21 mEq/L (20-26)
[2021-10-25] MEDS: *HR* FentaNYL (PF) 100 MCG/2 ML VIAL IVP PRN ×2 (15:15→15:22)
[2021-10-25] MEDS: Promethazine 6.25 MG in Water for inj. (sterile) 20 ML IVPB PRN ×2 (15:25→15:40)
[2021-10-25] MEDS ORDERED: *HR* Metoprolol 5 MG/5 ML VIAL IVP ONE (15:53)
[2021-10-25] MEDS ORDERED: *HR* Metoprolol 5 MG/5 ML VIAL IVP PRN (15:54)
[2021-10-25] MEDS ORDERED: Isovue-370 500 ML BOTTLE IVP ONE (16:26)
[2021-10-25] MEDS ORDERED: Naloxone 0.4 MG/ML INJ IVP PRN ×2 (16:26)
[2021-10-25] MEDS ORDERED: Ondansetron ODT 4 MG TAB.RAPDIS SL PRN (16:26)
[2021-10-25] MEDS ORDERED: *HR* Heparin 5,000 UNIT/ML VIAL IVP PRN ×2 (16:26)
[2021-10-25] MEDS: *HR* Labetalol 20 MG/4 ML SYRINGE IVP PRN (16:45)
[2021-10-25] MEDS: Ondansetron 4 MG/2 ML VIAL IVP PRN (16:46)
[2021-10-25] MEDS: Morphine Sulfate 2 MG/ML SYRINGE IVP PRN ×2 (16:46→22:54)
[2021-10-25] MEDS: Heparin 25,000 UNIT/250 ML 25,000 UNIT/250 ML IV.SOLN IVC SCH (22:16)
[2021-10-26] MEDS ORDERED: CeFAZolin 2 GM/120 ML BAG IVPB SCH
[2021-10-26] MEDS: tiZANidine 4 MG TABLET PO PRN ×2 (02:16→22:30)
[2021-10-26 03:18] LABS: Calcium 8.1 mg/dL (8.6-10.3)
[2021-10-26] MEDS: Metoprolol XL (24 HR) Succ 50 MG TAB.ER.24H PO SCH (08:09)
[2021-10-26] MEDS: CeFAZolin 2 GM/120 ML BAG IVPB SCH (08:10)
[2021-10-26] MEDS: Morphine Sulfate 2 MG/ML SYRINGE IVP PRN ×2 (11:58→18:34)
[2021-10-26] MEDS: *HR* HYDROcodone/Acet 5/325 mg TABLET PO PRN ×2 (16:22→22:30)
[2021-10-26] MEDS: *HR* LORazepam 0.5 MG TABLET PO PRN (20:40)
[2021-10-27] MEDS: Heparin 25,000 UNIT/250 ML 25,000 UNIT/250 ML IV.SOLN IVC SCH (01:13)
[2021-10-27 01:17] LABS: Basophils % 0.1 %; Hematocrit 24.3 % (35.3-44.9); Lymphocytes # 0.6 K/mcL (0.6-4.6); Lymphocytes % 4.7 %; Mean Corpuscular HGB Conc 30.5 g/dL (31.6-35.5); Mean Corpuscular Hemoglobin 28.4 pg (28.0-33.3); Mean Corpuscular Volume 93.1 fL (83.0-100.0); Mean Platelet Volume 11.4 fL (9.4-12.4); Monocytes # 0.9 K/mcL (0.0-1.3); Monocytes % 7.5 %; Neutrophils # 10.9 K/mcL (1.6-8.9); Platelet Count 150 K/mcL (140-400); Red Blood Count 2.61 M/mcL (3.82-4.97); Red Cell Distribution Width 14.9 % (11.5-14.5); Segmented Neutrophils % 86.7 %; White Blood Count 12.5 K/mcL (4.3-11.1)
[2021-10-27 01:26] LABS: Hemoglobin 7.4 g/dL (11.5-15.4)
[2021-10-27 01:37] LABS: Calcium 7.9 mg/dL (8.6-10.3)
[2021-10-27] MEDS: Metoprolol XL (24 HR) Succ 50 MG TAB.ER.24H PO SCH (07:08)
[2021-10-27] MEDS: Morphine Sulfate 2 MG/ML SYRINGE IVP PRN ×2 (07:08→18:36)
[2021-10-27 09:49] LABS: Hematocrit 25.7 % (35.3-44.9); Hemoglobin 7.9 g/dL (11.5-15.4)
[2021-10-27] MEDS: amLODIPine 5 MG TABLET PO SCH (11:52)
[2021-10-27] MEDS: *HR* HYDROcodone/Acet 5/325 mg TABLET PO PRN (16:29)
[2021-10-27] MEDS: *HR* Labetalol 20 MG/4 ML SYRINGE IVP PRN (16:29)
[2021-10-27] MEDS: tiZANidine 4 MG TABLET PO PRN (23:08)
[2021-10-28 01:32] LABS: Basophils % 0.1 %; Hematocrit 21.7 % (35.3-44.9); Hemoglobin 6.9 g/dL (11.5-15.4); Lymphocytes # 0.5 K/mcL (0.6-4.6); Lymphocytes % 4.2 %; Mean Corpuscular HGB Conc 31.8 g/dL (31.6-35.5); Mean Corpuscular Hemoglobin 29.5 pg (28.0-33.3); Mean Corpuscular Volume 92.7 fL (83.0-100.0); Mean Platelet Volume 11.3 fL (9.4-12.4); Monocytes # 0.8 K/mcL (0.0-1.3); Monocytes % 7.3 %; Neutrophils # 9.4 K/mcL (1.6-8.9); Platelet Count 148 K/mcL (140-400); Red Blood Count 2.34 M/mcL (3.82-4.97); Red Cell Distribution Width 14.9 % (11.5-14.5); Segmented Neutrophils % 87.4 %; White Blood Count 10.7 K/mcL (4.3-11.1)
[2021-10-28] MEDS: Heparin 25,000 UNIT/250 ML 25,000 UNIT/250 ML IV.SOLN IVC SCH ×2 (01:45→21:35)
[2021-10-28 01:49] LABS: Potassium 4.1 mEq/L (3.5-5.1)
[2021-10-28] MEDS: Morphine Sulfate 2 MG/ML SYRINGE IVP PRN ×2 (08:48→17:01)
[2021-10-28] MEDS: Metoprolol XL (24 HR) Succ 50 MG TAB.ER.24H PO SCH (08:49)
[2021-10-28] MEDS: amLODIPine 5 MG TABLET PO SCH (08:49)
[2021-10-28 11:21] LABS: Hematocrit 23.9 % (35.3-44.9); Hemoglobin 7.2 g/dL (11.5-15.4); Mean Corpuscular HGB Conc 30.1 g/dL (31.6-35.5); Mean Corpuscular Hemoglobin 28.2 pg (28.0-33.3); Mean Corpuscular Volume 93.7 fL (83.0-100.0); Mean Platelet Volume 11.3 fL (9.4-12.4); Platelet Count 158 K/mcL (140-400); Red Blood Count 2.55 M/mcL (3.82-4.97); Red Cell Distribution Width 15.1 % (11.5-14.5); White Blood Count 12.4 K/mcL (4.3-11.1)
[2021-10-28] MEDS: *HR* Labetalol 20 MG/4 ML SYRINGE IVP PRN (13:33)
[2021-10-28 20:14] LABS: Hematocrit 23.8 % (35.3-44.9); Hemoglobin 7.3 g/dL (11.5-15.4)
[2021-10-29] MEDS: Acetaminophen 325 MG TABLET PO PRN (00:29)
[2021-10-29 06:22] LABS: Basophils % 0.1 %; Hematocrit 21.8 % (35.3-44.9); Hemoglobin 6.6 g/dL (11.5-15.4); Immature Granulocytes % 2.3 % (0-4); Lymphocytes # 0.5 K/mcL (0.6-4.6); Lymphocytes % 4.1 %; Mean Corpuscular HGB Conc 30.3 g/dL (31.6-35.5); Mean Corpuscular Hemoglobin 28.1 pg (28.0-33.3); Mean Corpuscular Volume 92.8 fL (83.0-100.0); Mean Platelet Volume 11.4 fL (9.4-12.4); Monocytes % 8.4 %; Neutrophils # 10.1 K/mcL (1.6-8.9); Nucleated Red Blood Cells 0.2 /100 WBC (0); Platelet Count 193 K/mcL (140-400); Red Blood Count 2.35 M/mcL (3.82-4.97); Red Cell Distribution Width 15.1 % (11.5-14.5); Segmented Neutrophils % 85.1 %; White Blood Count 11.8 K/mcL (4.3-11.1)
[2021-10-29 06:40] LABS: Calcium 8.1 mg/dL (8.6-10.3); Potassium 3.6 mEq/L (3.5-5.1)
[2021-10-29] MEDS ORDERED: 0.9 % Sodium Chloride 250 ML ONE (06:59)
[2021-10-29] MEDS: Metoprolol XL (24 HR) Succ 50 MG TAB.ER.24H PO SCH (08:01)
[2021-10-29] MEDS: amLODIPine 5 MG TABLET PO SCH (08:01)
[2021-10-29] MEDS: *HR* Labetalol 20 MG/4 ML SYRINGE IVP PRN ×3 (11:10→14:09)
[2021-10-29] MEDS: Morphine Sulfate 2 MG/ML SYRINGE IVP PRN ×2 (14:09→18:09)
[2021-10-29] MEDS: Pantoprazole 40 MG VIAL IVP SCH (17:08)
[2021-10-29] MEDS: Heparin 25,000 UNIT/250 ML 25,000 UNIT/250 ML IV.SOLN IVC SCH (18:11)
[2021-10-29 20:05] LABS: Adenovirus Not Detected (Not Detect); Bordetella Pertussis Not Detected (Not Detect); Chlamydophila pneumoniae Not Detected (Not Detect); Coronavirus 229E Not Detected (Not Detect); Coronavirus HKU1 Not Detected (Not Detect); Coronavirus NL63 Not Detected (Not Detect); Coronavirus OC43 Not Detected (Not Detect); Human Metapneumovirus Not Detected (Not Detect); Human Rhinovirus/Enterovirus Not Detected (Not Detect); Influenza A Subtype 2009 H1 Not Detected (Not Detect); Influenza B Not Detected (Not Detect); Mycoplasma pneumoniae Not Detected (Not Detect); Parainfluenza Virus 1 Not Detected (Not Detect); Parainfluenza Virus 2 Not Detected (Not Detect); Parainfluenza Virus 3 Not Detected (Not Detect); Parainfluenza Virus 4 Not Detected (Not Detect); Respiratory Syncytial Virus Not Detected (Not Detect); SARS-CoV-2 Not Detected (Not Detect)
[2021-10-29] MEDS: *HR* LORazepam 0.5 MG TABLET PO PRN (20:32)
[2021-10-30 01:48] LABS: Basophils % 0.3 %; Hematocrit 27.9 % (35.3-44.9); Immature Granulocytes % 2.2 % (0-4); Lymphocytes # 0.4 K/mcL (0.6-4.6); Mean Corpuscular HGB Conc 31.9 g/dL (31.6-35.5); Mean Corpuscular Hemoglobin 29.2 pg (28.0-33.3); Mean Corpuscular Volume 91.5 fL (83.0-100.0); Mean Platelet Volume 11.4 fL (9.4-12.4); Monocytes % 7.6 %; Neutrophils # 11.4 K/mcL (1.6-8.9); Nucleated Red Blood Cells 0.2 /100 WBC (0); Platelet Count 226 K/mcL (140-400); Red Blood Count 3.05 M/mcL (3.82-4.97); Red Cell Distribution Width 14.9 % (11.5-14.5); Segmented Neutrophils % 86.9 %; White Blood Count 13.1 K/mcL (4.3-11.1)
[2021-10-30 01:51] LABS: Hemoglobin 8.9 g/dL (11.5-15.4)
[2021-10-30 02:01] LABS: BUN/Creatinine Ratio 28 (6-26); Blood Urea Nitrogen 27 mg/dL (8-23); Calcium 8.2 mg/dL (8.6-10.3); Carbon Dioxide 17 mEq/L (23-29); Chloride 107 mEq/L (98-107); Glucose 99 mg/dL (70-105); Osmolality,Calculated 287 (280-300); Potassium 3.6 mEq/L (3.5-5.1); Sodium 136 mEq/L (136-145); eGFR For African Americans > 60 (> 60); eGFR For Non-African Americans 55 (> 60)
[2021-10-30] MEDS: *HR* HYDROcodone/Acet 5/325 mg TABLET PO PRN ×2 (02:56→10:00)
[2021-10-30] MEDS: tiZANidine 4 MG TABLET PO PRN (02:56)
[2021-10-30] MEDS: Pantoprazole 40 MG VIAL IVP SCH ×2 (05:17→18:46)
[2021-10-30 07:11] LABS: Heparin anti-factor XA UFH 0.3 IU/mL (0.30-0.70)
[2021-10-30] MEDS: Metoprolol XL (24 HR) Succ 50 MG TAB.ER.24H PO SCH (09:56)
[2021-10-30] MEDS: amLODIPine 5 MG TABLET PO SCH (09:57)
[2021-10-30 11:48] LABS: INR 1.7; Prothrombin Time 18.5 Seconds (9.4-12.1)
[2021-10-30] MEDS: Heparin 25,000 UNIT/250 ML 25,000 UNIT/250 ML IV.SOLN IVC SCH (16:30)
[2021-10-30] MEDS: *HR* Labetalol 20 MG/4 ML SYRINGE IVP PRN ×2 (16:57→22:50)
[2021-10-30] MEDS ORDERED: *HR* LORazepam 2 MG/ML VIAL IVP ONE (17:09)
[2021-10-30 17:40] LABS: ABG Base Excess -6 mEq/L (-2 to 3); ABG HCO3 17 mEq/L (21-27); ABG Oxygen Saturation 94 % (95-98); ABG PCO2 23 mmHg (35-45); ABG PH 7.47 pH Units (7.32-7.45); ABG PO2 63 mmHg (85-104); ABG TCO2 18 mEq/L (20-26)
[2021-10-30] MEDS ORDERED: Warfarin perPT PO PRN (18:00)
[2021-10-30] MEDS ORDERED: levoFLOXacin 750 MG/150 ML 750 MG/150 ML BAG IVPB SCH (18:00)
[2021-10-30] MEDS ORDERED: Furosemide 40 MG/4 ML VIAL IVP ONE (18:09)
[2021-10-30] MEDS ORDERED: Perflutren Lipid Microsphere 1.3 ML in 0.9 % Sodium Chloride 8.7 ML IVP PRN (18:12)
[2021-10-30 18:17] LABS: Basophils # 0.1 K/mcL (0.0-0.2); Basophils % 0.5 %; Eosinophils % 0.1 %; Hematocrit 30.5 % (35.3-44.9); Hemoglobin 9.8 g/dL (11.5-15.4); Immature Granulocytes % 2.6 % (0-4); Lymphocytes # 0.5 K/mcL (0.6-4.6); Lymphocytes % 2.6 %; Mean Corpuscular HGB Conc 32.1 g/dL (31.6-35.5); Mean Corpuscular Volume 90.2 fL (83.0-100.0); Mean Platelet Volume 11.3 fL (9.4-12.4); Monocytes # 0.9 K/mcL (0.0-1.3); Monocytes % 5.3 %; Neutrophils # 15.6 K/mcL (1.6-8.9); Nucleated Red Blood Cells 0.1 /100 WBC (0); Platelet Count 279 K/mcL (140-400); Red Blood Count 3.38 M/mcL (3.82-4.97); Red Cell Distribution Width 14.8 % (11.5-14.5); Segmented Neutrophils % 88.9 %; White Blood Count 17.5 K/mcL (4.3-11.1)
[2021-10-30 18:31] LABS: Albumin 2.7 g/dL (3.5-5.7); Albumin/Globulin Ratio 0.8 (1.1-2.2); Bilirubin,Direct 0.2 mg/dL (0.0-0.2); Bilirubin,Indirect 0.5 mg/dL (0.0-1.0); Bilirubin,Total 0.7 mg/dL (0.3-1.0); Globulin 3.5 g/dL (2.4-3.5); Total Protein 6.2 g/dL (6.4-8.9)
[2021-10-30 18:32] LABS: BUN/Creatinine Ratio 30 (6-26); Blood Urea Nitrogen 29 mg/dL (8-23); Calcium 8.4 mg/dL (8.6-10.3); Carbon Dioxide 18 mEq/L (23-29); Chloride 106 mEq/L (98-107); Glucose 122 mg/dL (70-105); Lipase 25 Units/L (11-82); Osmolality,Calculated 283 (280-300); Potassium 3.6 mEq/L (3.5-5.1); Sodium 133 mEq/L (136-145); eGFR For African Americans > 60 (> 60); eGFR For Non-African Americans 56 (> 60)
[2021-10-30] MEDS: Morphine Sulfate 2 MG/ML SYRINGE IVP PRN (18:43)
[2021-10-30 18:57] LABS: Thyroid Stimulating Hormone 4.795 mcIU/mL (0.340-5.600)
[2021-10-30] MEDS: *HR* Warfarin 2.5 MG TABLET PO ONE ×2 (20:12→22:59)
[2021-10-30] MEDS ORDERED: Furosemide 20 MG/2 ML VIAL IVP ONE (21:45)
[2021-10-31] MEDS: Morphine Sulfate 2 MG/ML SYRINGE IVP PRN (00:38)
[2021-10-31] MEDS: *HR* Labetalol 20 MG/4 ML SYRINGE IVP PRN (01:50)
[2021-10-31 05:21] LABS: Basophils # 0.1 K/mcL (0.0-0.2); Basophils % 0.4 %; Hematocrit 28.9 % (35.3-44.9); Hemoglobin 9.5 g/dL (11.5-15.4); Immature Granulocytes % 3.4 % (0-4); Lymphocytes # 0.4 K/mcL (0.6-4.6); Lymphocytes % 2.5 %; Mean Corpuscular HGB Conc 32.9 g/dL (31.6-35.5); Mean Corpuscular Volume 91.2 fL (83.0-100.0); Mean Platelet Volume 11.3 fL (9.4-12.4); Monocytes # 0.9 K/mcL (0.0-1.3); Monocytes % 5.7 %; Neutrophils # 14.1 K/mcL (1.6-8.9); Nucleated Red Blood Cells 0.1 /100 WBC (0); Platelet Count 273 K/mcL (140-400); Red Blood Count 3.17 M/mcL (3.82-4.97); Red Cell Distribution Width 14.7 % (11.5-14.5)
[2021-10-31 05:32] LABS: INR 1.5; Prothrombin Time 16.3 Seconds (9.4-12.1)
[2021-10-31 05:40] LABS: Calcium 8.3 mg/dL (8.6-10.3); Potassium 3.1 mEq/L (3.5-5.1)
[2021-10-31] MEDS: Pantoprazole 40 MG VIAL IVP SCH ×2 (05:47→19:03)
[2021-10-31] MEDS ORDERED: Potassium Chloride Elixir 20 MEQ/15 ML UDC PO ONE (07:39)
[2021-10-31 08:26] LABS: Troponin I 0.95 ng/mL (< 0.04)
[2021-10-31] MEDS: amLODIPine 5 MG TABLET PO SCH (08:37)
[2021-10-31] MEDS: Furosemide 40 MG/4 ML VIAL IVP SCH ×2 (08:37→20:17)
[2021-10-31] MEDS: Metoprolol XL (24 HR) Succ 50 MG TAB.ER.24H PO SCH (08:37)
[2021-10-31] MEDS: Cefepime HCl 2,000 MG in Water for inj. (sterile) 10 ML IVP SCH ×3 (08:38→16:43)
[2021-10-31] MEDS: Heparin 25,000 UNIT/250 ML 25,000 UNIT/250 ML IV.SOLN IVC SCH (15:48)
[2021-10-31] MEDS ORDERED: *HR* Warfarin 5 MG TABLET PO ONE (18:00)
[2021-10-31] MEDS: Doxycycline 100 MG in 0.9 % Sodium Chloride Mini Bag 100 ML IVPB SCH ×2 (19:03→19:07)
[2021-11-01] MEDS: Cefepime HCl 2,000 MG in Water for inj. (sterile) 10 ML IVP SCH ×2 (00:18→08:18)
[2021-11-01 04:50] LABS: INR 1.5
[2021-11-01] MEDS: Doxycycline 100 MG in 0.9 % Sodium Chloride Mini Bag 100 ML IVPB SCH ×2 (06:55→18:10)
[2021-11-01] MEDS: Pantoprazole 40 MG VIAL IVP SCH ×2 (06:56→18:11)
[2021-11-01] MEDS: Metoprolol XL (24 HR) Succ 50 MG TAB.ER.24H PO SCH (08:19)
[2021-11-01] MEDS: amLODIPine 5 MG TABLET PO SCH (08:19)
[2021-11-01] MEDS: Furosemide 40 MG/4 ML VIAL IVP SCH (08:20)
[2021-11-01] MEDS: *HR* HYDROcodone/Acet 5/325 mg TABLET PO PRN ×2 (08:37→18:11)
[2021-11-01 09:13] LABS: Hematocrit 29.4 % (35.3-44.9); Hemoglobin 9.6 g/dL (11.5-15.4); Mean Corpuscular HGB Conc 32.7 g/dL (31.6-35.5); Mean Corpuscular Volume 91.9 fL (83.0-100.0); Mean Platelet Volume 11.2 fL (9.4-12.4); Nucleated Red Blood Cells 0.1 /100 WBC (0); Platelet Count 285 K/mcL (140-400)
[2021-11-01 09:29] LABS: Calcium 8.1 mg/dL (8.6-10.3); Potassium 2.8 mEq/L (3.5-5.1)
[2021-11-01 10:05] LABS: Lymphocytes # 0.2 K/mcL (0.6-4.6); Monocytes # 0.9 K/mcL (0.0-1.3); Neutrophils # 13.4 K/mcL (1.6-8.9); Platelet Estimate Normal (Normal); Toxic Granulation Present (Not Present)
[2021-11-01] MEDS ORDERED: Potassium Chloride Elixir 20 MEQ/15 ML UDC PO ONE ×2 (10:18→13:48)
[2021-11-01] MEDS: *HR* Enoxaparin 60 MG/0.6 ML SYRINGE SQ SCH ×2 (11:04→18:11)
[2021-11-01] MEDS ORDERED: *HR* Warfarin 5 MG TABLET PO ONE (18:00)
[2021-11-02 01:38] LABS: Hematocrit 28.9 % (35.3-44.9); Mean Corpuscular HGB Conc 31.1 g/dL (31.6-35.5); Mean Corpuscular Hemoglobin 28.5 pg (28.0-33.3); Mean Corpuscular Volume 91.5 fL (83.0-100.0); Mean Platelet Volume 11.1 fL (9.4-12.4); Nucleated Red Blood Cells 0.2 /100 WBC (0); Platelet Count 299 K/mcL (140-400); Red Blood Count 3.16 M/mcL (3.82-4.97); Red Cell Distribution Width 14.8 % (11.5-14.5); White Blood Count 16.5 K/mcL (4.3-11.1)
[2021-11-02 01:39] LABS: Monocytes # 0.7 K/mcL (0.0-1.3)
[2021-11-02 01:46] LABS: INR 1.5; Prothrombin Time 16.2 Seconds (9.4-12.1)
[2021-11-02 01:54] LABS: Anisocytosis 1+ (Not Present); Lymphocytes # 0.7 K/mcL (0.6-4.6); Neutrophils # 15.2 K/mcL (1.6-8.9); Platelet Estimate Normal (Normal); Toxic Granulation Present (Not Present)
[2021-11-02 01:56] LABS: Calcium 8.2 mg/dL (8.6-10.3); Potassium 3.1 mEq/L (3.5-5.1)
[2021-11-02] MEDS: Doxycycline 100 MG in 0.9 % Sodium Chloride Mini Bag 100 ML IVPB SCH ×2 (05:57→16:59)
[2021-11-02] MEDS: *HR* Enoxaparin 60 MG/0.6 ML SYRINGE SQ SCH ×2 (05:58→17:00)
[2021-11-02] MEDS: Pantoprazole 40 MG VIAL IVP SCH ×2 (05:58→17:00)
[2021-11-02] MEDS: Furosemide 40 MG/4 ML VIAL IVP SCH (07:38)
[2021-11-02] MEDS: Metoprolol XL (24 HR) Succ 50 MG TAB.ER.24H PO SCH (07:40)
[2021-11-02] MEDS: amLODIPine 5 MG TABLET PO SCH (07:41)
[2021-11-02] MEDS ORDERED: amLODIPine 5 MG TABLET PO ONE (07:51)
[2021-11-02] MEDS: lisinopriL 20 MG TABLET PO SCH (08:07)
[2021-11-02] MEDS: Potassium Chloride Elixir 20 MEQ/15 ML UDC PO SCH (12:05)
[2021-11-02] MEDS: hydrALAZINE 25 MG TABLET PO SCH ×2 (12:05→19:54)
[2021-11-02] MEDS: Sennosides/Docusate Sodium TABLET PO SCH (13:49)
[2021-11-02] MEDS: *HR* HYDROcodone/Acet 5/325 mg TABLET PO PRN (13:54)
[2021-11-02] MEDS: *HR* LORazepam 0.5 MG TABLET PO PRN (13:54)
[2021-11-02] MEDS ORDERED: Potassium Chloride Elixir 20 MEQ/15 ML UDC PO SCH (16:00)
[2021-11-02] MEDS ORDERED: *HR* Warfarin 7.5 MG TABLET PO ONE (18:00)
[2021-11-02] MEDS: Ondansetron 4 MG/2 ML VIAL IVP PRN (21:29)
[2021-11-03 01:55] LABS: Hematocrit 28.4 % (35.3-44.9); Hemoglobin 9.2 g/dL (11.5-15.4); Mean Corpuscular HGB Conc 32.4 g/dL (31.6-35.5); Mean Corpuscular Hemoglobin 29.5 pg (28.0-33.3); Mean Platelet Volume 10.6 fL (9.4-12.4); Platelet Count 308 K/mcL (140-400); Red Blood Count 3.12 M/mcL (3.82-4.97); Red Cell Distribution Width 14.8 % (11.5-14.5); White Blood Count 17.9 K/mcL (4.3-11.1)
[2021-11-03 02:06] LABS: INR 3.3; Prothrombin Time 36.6 Seconds (9.4-12.1)
[2021-11-03 02:27] LABS: Eosinophils # 0.4 K/mcL (0.0-0.6); Lymphocytes # 1.1 K/mcL (0.6-4.6); Monocytes # 1.1 K/mcL (0.0-1.3); Neutrophils # 15.4 K/mcL (1.6-8.9); Platelet Estimate Normal (Normal); Toxic Granulation Present (Not Present)
[2021-11-03 04:12] LABS: Calcium 8.3 mg/dL (8.6-10.3); Phosphorous 2.1 mg/dL (2.7-4.5); Potassium 3.9 mEq/L (3.5-5.1)
[2021-11-03] MEDS: Doxycycline 100 MG in 0.9 % Sodium Chloride Mini Bag 100 ML IVPB SCH ×2 (06:00→18:26)
[2021-11-03] MEDS: *HR* Enoxaparin 60 MG/0.6 ML SYRINGE SQ SCH (06:01)
[2021-11-03] MEDS: Pantoprazole 40 MG VIAL IVP SCH (06:01)
[2021-11-03] MEDS: hydrALAZINE 25 MG TABLET PO SCH ×4 (06:02→21:33)
[2021-11-03] MEDS: *HR* HYDROcodone/Acet 5/325 mg TABLET PO PRN (06:05)
[2021-11-03] MEDS: lisinopriL 20 MG TABLET PO SCH (09:35)
[2021-11-03] MEDS: Sennosides/Docusate Sodium TABLET PO SCH (09:35)
[2021-11-03] MEDS: amLODIPine 5 MG TABLET PO SCH (09:36)
[2021-11-03] MEDS: Furosemide 40 MG/4 ML VIAL IVP SCH (09:36)
[2021-11-03] MEDS: Metoprolol XL (24 HR) Succ 50 MG TAB.ER.24H PO SCH (09:36)
[2021-11-03] MEDS ORDERED: Albuterol 2.5 MG/3 ML NEBULIZER IH PRN (11:07)
[2021-11-03] MEDS: Acetaminophen 325 MG TABLET PO PRN (11:25)
[2021-11-03] MEDS: *HR* LORazepam 0.5 MG TABLET PO PRN (21:34)
[2021-11-04] MEDS: Doxycycline 100 MG in 0.9 % Sodium Chloride Mini Bag 100 ML IVPB SCH (05:35)
[2021-11-04] MEDS: hydrALAZINE 25 MG TABLET PO SCH ×3 (05:35→20:26)
[2021-11-04 05:47] LABS: Basophils # 0.1 K/mcL (0.0-0.2); Basophils % 0.4 %; Eosinophils % 0.1 %; Hematocrit 28.7 % (35.3-44.9); Hemoglobin 9.3 g/dL (11.5-15.4); Immature Granulocytes % 5.7 % (0-4); Lymphocytes # 0.5 K/mcL (0.6-4.6); Mean Corpuscular HGB Conc 32.4 g/dL (31.6-35.5); Mean Corpuscular Hemoglobin 29.5 pg (28.0-33.3); Mean Corpuscular Volume 91.1 fL (83.0-100.0); Mean Platelet Volume 10.6 fL (9.4-12.4); Monocytes # 0.8 K/mcL (0.0-1.3); Monocytes % 4.4 %; Neutrophils # 15.3 K/mcL (1.6-8.9); Platelet Count 330 K/mcL (140-400); Red Blood Count 3.15 M/mcL (3.82-4.97); Red Cell Distribution Width 15.1 % (11.5-14.5); Segmented Neutrophils % 86.4 %; White Blood Count 17.7 K/mcL (4.3-11.1)
[2021-11-04 06:05] LABS: Calcium 8.4 mg/dL (8.6-10.3); Magnesium 2.5 mg/dL (1.6-2.6); Phosphorous 3.9 mg/dL (2.7-4.5); Potassium 3.5 mEq/L (3.5-5.1)
[2021-11-04 06:18] LABS: INR 10.6; Prothrombin Time 116.1 Seconds (9.4-12.1)
[2021-11-04 06:22] LABS: Platelet Estimate Normal (Normal)
[2021-11-04] MEDS: Potassium Chloride Elixir 20 MEQ/15 ML UDC PO SCH (07:24)
[2021-11-04] MEDS: Furosemide 40 MG/4 ML VIAL IVP SCH (07:56)
[2021-11-04] MEDS: lisinopriL 20 MG TABLET PO SCH (07:57)
[2021-11-04] MEDS: *HR* HYDROcodone/Acet 5/325 mg TABLET PO PRN ×2 (07:57→14:00)
[2021-11-04] MEDS: amLODIPine 5 MG TABLET PO SCH (07:57)
[2021-11-04] MEDS: Sennosides/Docusate Sodium TABLET PO SCH (07:57)
[2021-11-04 08:18] LABS: INR 10.3
[2021-11-04] MEDS: levoFLOXacin 750 MG/150 ML 750 MG/150 ML BAG IVPB SCH (08:44)
[2021-11-04] MEDS: Metoprolol XL (24 HR) Succ 50 MG TAB.ER.24H PO SCH ×2 (08:59→14:00)
[2021-11-04] MEDS: Morphine Sulfate 2 MG/ML SYRINGE IVP PRN (17:34)
[2021-11-05] MEDS: *HR* HYDROcodone/Acet 5/325 mg TABLET PO PRN ×4 (01:36→23:27)
[2021-11-05] MEDS: hydrALAZINE 25 MG TABLET PO SCH ×4 (05:42→23:27)
[2021-11-05 05:43] LABS: Basophils # 0.1 K/mcL (0.0-0.2); Basophils % 0.7 %; Eosinophils # 0.1 K/mcL (0.0-0.6); Eosinophils % 0.6 %; Hematocrit 28.8 % (35.3-44.9); Hemoglobin 9.2 g/dL (11.5-15.4); Immature Granulocytes % 5.2 % (0-4); Lymphocytes # 0.5 K/mcL (0.6-4.6); Lymphocytes % 2.7 %; Mean Corpuscular HGB Conc 31.9 g/dL (31.6-35.5); Mean Corpuscular Hemoglobin 29.4 pg (28.0-33.3); Mean Platelet Volume 10.8 fL (9.4-12.4); Monocytes % 5.8 %; Neutrophils # 14.3 K/mcL (1.6-8.9); Platelet Count 333 K/mcL (140-400); Red Blood Count 3.13 M/mcL (3.82-4.97); Red Cell Distribution Width 15.2 % (11.5-14.5); White Blood Count 16.8 K/mcL (4.3-11.1)
[2021-11-05 06:00] LABS: INR 12.2; Prothrombin Time 133.1 Seconds (9.4-12.1)
[2021-11-05] MEDS ORDERED: *HR* Phytonadione 10 MG/ML AMPUL SQ ONE (07:22)
[2021-11-05] MEDS: lisinopriL 20 MG TABLET PO SCH (08:46)
[2021-11-05] MEDS: amLODIPine 5 MG TABLET PO SCH (08:46)
[2021-11-05] MEDS: Sennosides/Docusate Sodium TABLET PO SCH (08:46)
[2021-11-05] MEDS: Furosemide 40 MG/4 ML VIAL IVP SCH (08:47)
[2021-11-05 08:49] LABS: Calcium 8.3 mg/dL (8.6-10.3); Magnesium 2.2 mg/dL (1.6-2.6); Phosphorous 3.6 mg/dL (2.7-4.5); Potassium 3.4 mEq/L (3.5-5.1)
[2021-11-05] MEDS: Metoprolol XL (24 HR) Succ 50 MG TAB.ER.24H PO SCH (09:04)
[2021-11-05] MEDS ORDERED: Potassium Chloride Elixir 20 MEQ/15 ML UDC PO ONE (10:34)
[2021-11-06 05:52] LABS: Basophils # 0.1 K/mcL (0.0-0.2); Basophils % 0.5 %; Eosinophils # 0.1 K/mcL (0.0-0.6); Eosinophils % 0.5 %; Hematocrit 31.6 % (35.3-44.9); Hemoglobin 9.9 g/dL (11.5-15.4); Immature Granulocytes % 3.5 % (0-4); Lymphocytes # 0.4 K/mcL (0.6-4.6); Lymphocytes % 2.2 %; Mean Corpuscular HGB Conc 31.3 g/dL (31.6-35.5); Mean Corpuscular Hemoglobin 28.6 pg (28.0-33.3); Mean Corpuscular Volume 91.3 fL (83.0-100.0); Monocytes # 0.8 K/mcL (0.0-1.3); Monocytes % 4.2 %; Neutrophils # 17.7 K/mcL (1.6-8.9); Platelet Count 388 K/mcL (140-400); Red Blood Count 3.46 M/mcL (3.82-4.97); Red Cell Distribution Width 15.3 % (11.5-14.5); Segmented Neutrophils % 89.1 %; White Blood Count 19.9 K/mcL (4.3-11.1)
[2021-11-06 05:58] LABS: INR 3.4; Prothrombin Time 37.3 Seconds (9.4-12.1)
[2021-11-06] MEDS: *HR* HYDROcodone/Acet 5/325 mg TABLET PO PRN (05:58)
[2021-11-06 06:47] LABS: Calcium 8.4 mg/dL (8.6-10.3); Magnesium 2.1 mg/dL (1.6-2.6); Phosphorous 3.1 mg/dL (2.7-4.5)
[2021-11-06] MEDS: hydrALAZINE 25 MG TABLET PO SCH ×3 (08:09→23:13)
[2021-11-06] MEDS: amLODIPine 5 MG TABLET PO SCH (08:09)
[2021-11-06] MEDS: Metoprolol XL (24 HR) Succ 50 MG TAB.ER.24H PO SCH ×2 (08:09→20:38)
[2021-11-06] MEDS: levoFLOXacin 750 MG/150 ML 750 MG/150 ML BAG IVPB SCH (08:10)
[2021-11-06] MEDS: Furosemide 20 MG TABLET PO SCH (08:10)
[2021-11-06] MEDS: Sennosides/Docusate Sodium TABLET PO SCH (08:10)
[2021-11-06] MEDS: lisinopriL 20 MG TABLET PO SCH (08:10)
[2021-11-06] MEDS: Morphine Sulfate 2 MG/ML SYRINGE IVP PRN ×2 (10:30→14:42)
[2021-11-06 11:12] LABS: Bilirubin,Urine Negative (Negative); Blood,Urine Negative (Negative); Clarity,Urine Clear (Clear); Color,Urine Light-Yellow (Yellow); Glucose,Urine (UA) Normal (Normal); Ketones,Urine Negative (Negative); Leukocyte Esterase,Urine Trace (Negative); Nitrite,Urine Negative (Negative); Protein,Urine Trace mg/dL (Neg-Trace); RBC,Urine 0-3 per hpf (0-3); Specific Gravity,Urine 1.015 (1.010-1.025); Squamous Epithelial Cell,Urine Few per hpf (None-Few); Urobilinogen,Urine Normal (Normal)
[2021-11-06] MEDS: Ondansetron 4 MG/2 ML VIAL IVP PRN (13:46)
[2021-11-07] MEDS ORDERED: Saline Nasal Spray 44 ML BOTTLE NS PRN (04:56)
[2021-11-07 05:17] LABS: ABG Base Excess -6 mEq/L (-2 to 3); ABG HCO3 18 mEq/L (21-27); ABG Oxygen Saturation 97 % (95-98); ABG PCO2 29 mmHg (35-45); ABG PH 7.41 pH Units (7.32-7.45); ABG PO2 86 mmHg (85-104); ABG TCO2 19 mEq/L (20-26)
[2021-11-07] MEDS ORDERED: lisinopriL 20 MG TABLET PO SCH (09:00)
[2021-11-07] MEDS: Sennosides/Docusate Sodium TABLET PO SCH (09:02)
[2021-11-07] MEDS: hydrALAZINE 25 MG TABLET PO SCH ×3 (09:03→23:11)
[2021-11-07] MEDS: Furosemide 20 MG TABLET PO SCH (09:03)
[2021-11-07] MEDS: amLODIPine 5 MG TABLET PO SCH (09:03)
[2021-11-07] MEDS: Metoprolol XL (24 HR) Succ 50 MG TAB.ER.24H PO SCH ×2 (09:03→19:51)
[2021-11-07] MEDS: *HR* LORazepam 0.5 MG TABLET PO PRN (09:03)
[2021-11-07 09:28] LABS: Basophils # 0.1 K/mcL (0.0-0.2); Basophils % 0.5 %; Eosinophils % 0.1 %; Hematocrit 28.7 % (35.3-44.9); Immature Granulocytes % 4.2 % (0-4); Lymphocytes # 0.4 K/mcL (0.6-4.6); Mean Corpuscular HGB Conc 31.4 g/dL (31.6-35.5); Mean Corpuscular Hemoglobin 29.1 pg (28.0-33.3); Mean Corpuscular Volume 92.9 fL (83.0-100.0); Mean Platelet Volume 10.7 fL (9.4-12.4); Monocytes # 0.9 K/mcL (0.0-1.3); Monocytes % 4.3 %; Neutrophils # 18.3 K/mcL (1.6-8.9); Nucleated Red Blood Cells 0.1 /100 WBC (0); Platelet Count 313 K/mcL (140-400); Red Blood Count 3.09 M/mcL (3.82-4.97); Red Cell Distribution Width 15.6 % (11.5-14.5); Segmented Neutrophils % 88.9 %; White Blood Count 20.6 K/mcL (4.3-11.1)
[2021-11-07 09:34] LABS: INR 1.7; Prothrombin Time 18.8 Seconds (9.4-12.1)
[2021-11-07 09:38] LABS: Calcium 8.2 mg/dL (8.6-10.3); Phosphorous 4.4 mg/dL (2.7-4.5)
[2021-11-07 10:24] LABS: Adenovirus Not Detected (Not Detect); Coronavirus 229E Not Detected (Not Detect); Coronavirus HKU1 Not Detected (Not Detect); Coronavirus NL63 Not Detected (Not Detect); Coronavirus OC43 Not Detected (Not Detect); SARS-CoV-2 Not Detected (Not Detect)
[2021-11-07 10:25] LABS: Bordetella Pertussis Not Detected (Not Detect); Chlamydophila pneumoniae Not Detected (Not Detect); Human Metapneumovirus Not Detected (Not Detect); Human Rhinovirus/Enterovirus Not Detected (Not Detect); Influenza A Subtype 2009 H1 Not Detected (Not Detect); Influenza B Not Detected (Not Detect); Mycoplasma pneumoniae Not Detected (Not Detect); Parainfluenza Virus 1 Not Detected (Not Detect); Parainfluenza Virus 2 Not Detected (Not Detect); Parainfluenza Virus 3 Not Detected (Not Detect); Parainfluenza Virus 4 Not Detected (Not Detect); Respiratory Syncytial Virus Not Detected (Not Detect)
[2021-11-07] MEDS: Ondansetron 4 MG/2 ML VIAL IVP PRN (11:29)
[2021-11-07] MEDS: Morphine Sulfate 2 MG/ML SYRINGE IVP PRN ×2 (11:29→19:51)
[2021-11-07] MEDS ORDERED: Furosemide 40 MG/4 ML VIAL IVP ONE (16:44)
[2021-11-07] MEDS: *HR* Enoxaparin 60 MG/0.6 ML SYRINGE SQ SCH (17:52)
[2021-11-07] MEDS: *HR* HYDROcodone/Acet 5/325 mg TABLET PO PRN (17:53)
[2021-11-07] MEDS ORDERED: *HR* Warfarin 2 MG TABLET PO ONE (18:00)
[2021-11-08] MEDS: *HR* HYDROcodone/Acet 5/325 mg TABLET PO PRN ×2 (03:41→14:21)
[2021-11-08 05:29] LABS: Hematocrit 29.1 % (35.3-44.9); Hemoglobin 9.1 g/dL (11.5-15.4); Mean Corpuscular HGB Conc 31.3 g/dL (31.6-35.5); Mean Corpuscular Hemoglobin 29.4 pg (28.0-33.3); Mean Corpuscular Volume 93.9 fL (83.0-100.0); Mean Platelet Volume 10.7 fL (9.4-12.4); Platelet Count 309 K/mcL (140-400); Red Cell Distribution Width 15.8 % (11.5-14.5); White Blood Count 21.6 K/mcL (4.3-11.1)
[2021-11-08 05:37] LABS: INR 1.5; Prothrombin Time 17.2 Seconds (9.4-12.1)
[2021-11-08 05:46] LABS: Calcium 8.2 mg/dL (8.6-10.3); Potassium 3.7 mEq/L (3.5-5.1)
[2021-11-08] MEDS ORDERED: Vancomycin 1 EACH in 0.9 % Sodium Chloride 250 ML IVPB SCH (08:00)
[2021-11-08] MEDS: amLODIPine 5 MG TABLET PO SCH (08:48)
[2021-11-08] MEDS: hydrALAZINE 25 MG TABLET PO SCH ×2 (08:48→16:59)
[2021-11-08] MEDS: *HR* LORazepam 0.5 MG TABLET PO PRN (08:48)
[2021-11-08] MEDS: levoFLOXacin 750 MG/150 ML 750 MG/150 ML BAG IVPB SCH (08:49)
[2021-11-08] MEDS: Metoprolol XL (24 HR) Succ 50 MG TAB.ER.24H PO SCH ×2 (08:49→19:22)
[2021-11-08] MEDS: Sennosides/Docusate Sodium TABLET PO SCH (08:49)
[2021-11-08 16:47] LABS: Bacteria,Urine Few per hpf (None-Few); Bilirubin,Urine Negative (Negative); Blood,Urine Negative (Negative); Budding Yeast,Urine Many per hpf (None Seen); Clarity,Urine Turbid (Clear); Color,Urine Light-Yellow (Yellow); Glucose,Urine (UA) Normal (Normal); Ketones,Urine Negative (Negative); Leukocyte Esterase,Urine Small (Negative); Mucus,Urine Few per lpf (None-Few); Nitrite,Urine Negative (Negative); PH,Urine 5.5 pH Units (5.0-8.0); Protein,Urine Trace mg/dL (Neg-Trace); RBC,Urine 30-50 per hpf (0-3); Specific Gravity,Urine 1.016 (1.010-1.025); Squamous Epithelial Cell,Urine Few per hpf (None-Few); Urobilinogen,Urine Normal (Normal)
[2021-11-08] MEDS: *HR* Enoxaparin 60 MG/0.6 ML SYRINGE SQ SCH (16:59)
[2021-11-08] MEDS: Albumin 25% 25gram/100mL 25 GM/100 ML IV.SOLN IVPB SCH (17:00)
[2021-11-08] MEDS ORDERED: *HR* HYDROcodone/Acet 5/325 mg TABLET PO PRN (17:33)
[2021-11-08] MEDS ORDERED: *HR* OxyCODONE Immed Rel 5 MG TABLET PO PRN (17:34)
[2021-11-08 20:01] LABS: ABG Base Excess -6 mEq/L (-2 to 3); ABG HCO3 18 mEq/L (21-27); ABG Oxygen Saturation 92 % (95-98); ABG PCO2 30 mmHg (35-45); ABG PH 7.39 pH Units (7.32-7.45); ABG PO2 64 mmHg (85-104); ABG TCO2 19 mEq/L (20-26)
[2021-11-09] MEDS: hydrALAZINE 25 MG TABLET PO SCH ×3 (00:02→09:05)
[2021-11-09] MEDS: Albumin 25% 25gram/100mL 25 GM/100 ML IV.SOLN IVPB SCH ×3 (00:11→20:03)
[2021-11-09 07:59] LABS: Hematocrit 29.1 % (35.3-44.9); Hemoglobin 8.7 g/dL (11.5-15.4); Mean Corpuscular HGB Conc 29.9 g/dL (31.6-35.5); Mean Corpuscular Hemoglobin 28.2 pg (28.0-33.3); Mean Corpuscular Volume 94.5 fL (83.0-100.0); Mean Platelet Volume 10.6 fL (9.4-12.4); Platelet Count 273 K/mcL (140-400); Red Blood Count 3.08 M/mcL (3.82-4.97); Red Cell Distribution Width 15.6 % (11.5-14.5); White Blood Count 19.9 K/mcL (4.3-11.1)
[2021-11-09 08:10] LABS: Albumin 3.3 g/dL (3.5-5.7); Calcium 8.9 mg/dL (8.6-10.3); Magnesium 2.3 mg/dL (1.6-2.6); Phosphorous 4.5 mg/dL (2.7-4.5); Potassium 3.6 mEq/L (3.5-5.1); Uric Acid 9.1 mg/dL (2.3-7.6)
[2021-11-09 08:22] LABS: INR 1.6; Prothrombin Time 18.1 Seconds (9.4-12.1)
[2021-11-09] MEDS: Metoprolol XL (24 HR) Succ 50 MG TAB.ER.24H PO SCH ×2 (08:48→09:05)
[2021-11-09] MEDS: *HR* LORazepam 0.5 MG TABLET PO PRN (08:48)
[2021-11-09] MEDS: Sennosides/Docusate Sodium TABLET PO SCH ×2 (08:49→09:05)
[2021-11-09] MEDS: amLODIPine 5 MG TABLET PO SCH ×2 (08:49→09:05)
[2021-11-09] MEDS ORDERED: Morphine Sulfate 2 MG/ML SYRINGE IVP ONE (08:58)
[2021-11-09 09:47] LABS: Complement C3 118 mg/dL (87-200)
[2021-11-09 10:15] LABS: ABG Base Excess -6 mEq/L (-2 to 3); ABG HCO3 18 mEq/L (21-27); ABG Oxygen Saturation 91 % (95-98); ABG PCO2 30 mmHg (35-45); ABG PH 7.39 pH Units (7.32-7.45); ABG PO2 60 mmHg (85-104); ABG TCO2 19 mEq/L (20-26); Blood Gas Modality CPAP/PS
[2021-11-09] MEDS ORDERED: *HR* LORazepam 2 MG/ML VIAL IVP ONE (12:00)
[2021-11-09] MEDS ORDERED: *HR* LORazepam 2 MG/ML VIAL IVP PRN (12:13)
[2021-11-09] MEDS ORDERED: *HR* Metoprolol 5 MG/5 ML VIAL IVP PRN (12:13)
[2021-11-09] MEDS: Pantoprazole 40 MG VIAL IVP SCH (13:30)
[2021-11-09] MEDS ORDERED: *HR* Labetalol 20 MG/4 ML SYRINGE IVP PRN (14:42)
[2021-11-09] MEDS ORDERED: Lidocaine -MPF 1% 5 ML AMPUL INFILT ONE (15:33)
[2021-11-09] MEDS ORDERED: Albumin 25% 25gram/100mL 25 GM/100 ML IV.SOLN IVPB SCH (16:00)
[2021-11-09] MEDS: Dexmedetomidine HCl 400 MCG/100 ML MLS IVC SCH (16:35)
[2021-11-09] MEDS: *HR* Enoxaparin 60 MG/0.6 ML SYRINGE SQ SCH (20:02)
[2021-11-10] MEDS: Dexmedetomidine HCl 400 MCG/100 ML MLS IVC SCH ×3 (02:49→22:14)
[2021-11-10] MEDS: Albumin 25% 25gram/100mL 25 GM/100 ML IV.SOLN IVPB SCH ×3 (04:24→20:54)
[2021-11-10 05:49] LABS: Hematocrit 20.8 % (35.3-44.9); Mean Corpuscular HGB Conc 31.3 g/dL (31.6-35.5); Mean Corpuscular Hemoglobin 29.1 pg (28.0-33.3); Mean Corpuscular Volume 93.3 fL (83.0-100.0); Mean Platelet Volume 10.8 fL (9.4-12.4); Platelet Count 172 K/mcL (140-400); Red Blood Count 2.23 M/mcL (3.82-4.97); Red Cell Distribution Width 15.9 % (11.5-14.5); White Blood Count 11.7 K/mcL (4.3-11.1)
[2021-11-10 05:56] LABS: Calcium 8.9 mg/dL (8.6-10.3); Potassium 3.6 mEq/L (3.5-5.1)
[2021-11-10 05:59] LABS: Hemoglobin 6.5 g/dL (11.5-15.4)
[2021-11-10] MEDS: levoFLOXacin 750 MG/150 ML 750 MG/150 ML BAG IVPB SCH (07:54)
[2021-11-10] MEDS: Pantoprazole 40 MG VIAL IVP SCH ×2 (07:54→18:00)
[2021-11-10] MEDS ORDERED: 0.9 % Sodium Chloride 250 ML ONE (09:41)
[2021-11-10] MEDS: Morphine Sulfate 2 MG/ML SYRINGE IVP PRN ×2 (12:23→18:29)
[2021-11-10 15:21] LABS: Hematocrit 25.6 % (35.3-44.9); Hemoglobin 7.9 g/dL (11.5-15.4)
[2021-11-10] MEDS: *HR* LORazepam 2 MG/ML VIAL IVP PRN (20:32)
[2021-11-10] MEDS ORDERED: Morphine Sulfate 2 MG/ML SYRINGE IVP ONE (21:35)
[2021-11-10 22:23] LABS: ABG Base Excess -11 mEq/L (-2 to 3); ABG HCO3 15 mEq/L (21-27); ABG Oxygen Saturation 76 % (95-98); ABG PCO2 32 mmHg (35-45); ABG PH 7.28 pH Units (7.32-7.45); ABG PO2 45 mmHg (85-104); ABG TCO2 16 mEq/L (20-26); Blood Gas Modality CPAP/PS
[2021-11-10 22:41] LABS: Albumin 4.2 g/dL (3.5-5.7); Albumin/Globulin Ratio 1.8 (1.1-2.2); Calcium 8.9 mg/dL (8.6-10.3); Globulin 2.4 g/dL (2.4-3.5); Potassium 4.5 mEq/L (3.5-5.1); Total Protein 6.6 g/dL (6.4-8.9)
[2021-11-11] MEDS ORDERED: D5% in 0.45% NACL 1,000 ML IVC SCH (00:45)
[2021-11-11 04:00] LABS: Basophils % 0.2 %; Red Blood Count 2.48 M/mcL (3.82-4.97)
[2021-11-11 04:02] LABS: Hematocrit 22.4 % (35.3-44.9); Hemoglobin 7.1 g/dL (11.5-15.4); Immature Granulocytes % 1.6 % (0-4); Immature Platelets 4.2 % (1.1-6.1); Lymphocytes # 0.2 K/mcL (0.6-4.6); Lymphocytes % 1.8 %; Mean Corpuscular HGB Conc 31.7 g/dL (31.6-35.5); Mean Corpuscular Hemoglobin 28.6 pg (28.0-33.3); Mean Corpuscular Volume 90.3 fL (83.0-100.0); Mean Platelet Volume 11.2 fL (9.4-12.4); Monocytes # 0.3 K/mcL (0.0-1.3); Monocytes % 2.3 %; Neutrophils # 11.2 K/mcL (1.6-8.9); Nucleated Red Blood Cells 0.7 /100 WBC (0); Platelet Count 122 K/mcL (140-400); Segmented Neutrophils % 94.1 %; White Blood Count 11.9 K/mcL (4.3-11.1)
[2021-11-11 04:17] LABS: Albumin 3.9 g/dL (3.5-5.7); Albumin/Globulin Ratio 1.8 (1.1-2.2); Bilirubin,Total 1.4 mg/dL (0.3-1.0); Calcium 8.6 mg/dL (8.6-10.3); Globulin 2.2 g/dL (2.4-3.5); Potassium 3.8 mEq/L (3.5-5.1); Total Protein 6.1 g/dL (6.4-8.9)
[2021-11-11 04:31] LABS: ABG Base Excess -3 mEq/L (-2 to 3); ABG HCO3 20 mEq/L (21-27); ABG Oxygen Saturation 98 % (95-98); ABG PCO2 29 mmHg (35-45); ABG PH 7.46 pH Units (7.32-7.45); ABG PO2 103 mmHg (85-104); ABG TCO2 21 mEq/L (20-26); Blood Gas Modality BiLevel
[2021-11-11] MEDS: Albumin 25% 25gram/100mL 25 GM/100 ML IV.SOLN IVPB SCH (04:57)
[2021-11-11] MEDS: Pantoprazole 40 MG VIAL IVP SCH (04:59)
[2021-11-11] MEDS ORDERED: D5% in Water 1,000 ML IVC SCH (05:45)
[2021-11-11] MEDS ORDERED: D5% in Water 1,000 ML IVC ONE (05:59)
[2021-11-11] MEDS: Morphine Sulfate 2 MG/ML SYRINGE IVP PRN ×3 (06:10→10:37)
[2021-11-11] MEDS: Dexmedetomidine HCl 400 MCG/100 ML MLS IVC SCH (07:04)
[2021-11-11 07:40] VITALS: TEMP 96.7
[2021-11-11] MEDS ORDERED: *HR* LORazepam 2 MG/ML VIAL IVP PRN (08:02)
[2021-11-11 08:11] VITALS: BP 179/65; PULSE 84; O2SAT 96
[2021-11-11] MEDS: *HR* LORazepam 2 MG/ML VIAL IVP PRN (10:36)
[2021-11-12 04:38] LABS: Lambda Qnt Free Light Chains 63.94 mg/L (5.71-26.30)
[2021-11-12 15:08] LABS: ANA IgG by ELISA NONE DETECTED (None Detected); Kappa Qnt Free Light Chains 92.51 mg/L (3.30-19.40)
[2021-11-12 23:22] LABS: Alpha 2 Globulin (PEP) 1.16 g/dL (0.48-1.05); Beta Globulin (PEP) 0.52 g/dL (0.48-1.10)
[2021-11-13 10:59] LABS: IFE Reflexed NOT DONE
[2021-11-13 11:00] LABS: GBM IgG Multiplex Bead Assay 0 AU/mL (0-19); Glomerular Basement Memb IgG NEGATIVE (Negative)
[2021-11-13 20:51] LABS: ANCA IFA Titer <1:20 (<1:20)
[2021-11-14 09:53] LABS: ANCA IFA Pattern NONE DETECTED (None Detected); Serine Protease-3 Antibody 1 AU/mL (0-19)
== END 2021-11-11 11:24 | disposition expired | DRG 268 ==
LOC: 4WAOSI → SUATTDRO 09:59 → 4WAOSI 20:01 → SUATTDRO 10-24 15:27 → 2NNU 10-24 19:50 → 2ANU 11-06 11:01 → 2NNU 11-09 11:24
PROVIDERS: ADMIT Hospitalist; ATTEND Family Medicine